=== PATIENT | male | born 1945 | race Caucasian/White ===

== ENCOUNTER 2019-07-04 13:50 | Outpatient (CLI) | payer MEDICARE, OTHER | END 2019-07-04 23:59 | disposition home or self-care (01) | LOC: WOU 13:50 | PROVIDERS: ATTEND Podiatrist Foot & Ankle Surgery | DX: B35.1 Tinea unguium (principal); L60.0 Ingrowing nail; I83.893 Varicose veins of bilateral lower extremities with other complications; Z86.718 Personal history of other venous thrombosis and embolism; Z79.01 Long term (current) use of anticoagulants | CPT/HCPCS: G0463 ==

== ENCOUNTER 2019-09-04 12:50 | Outpatient (CLI) | payer MEDICARE, OTHER | END 2019-09-04 23:59 | disposition home or self-care (01) | LOC: WOU 12:50 | PROVIDERS: ATTEND Podiatrist Foot & Ankle Surgery | DX: I87.312 Chronic venous hypertension (idiopathic) with ulcer of left lower extremity (principal); L97.822 Non-pressure chronic ulcer of other part of left lower leg with fat layer exposed; L60.0 Ingrowing nail; B35.1 Tinea unguium; I87.2 Venous insufficiency (chronic) (peripheral); R60.1 Generalized edema; I86.8 Varicose veins of other specified sites; Z79.01 Long term (current) use of anticoagulants | CPT/HCPCS: G0463 ==

== ENCOUNTER 2019-11-06 12:45 | Outpatient (CLI) | payer MEDICARE, OTHER | END 2019-11-06 23:59 | disposition home or self-care (01) | LOC: WOU 12:45 | PROVIDERS: ATTEND Podiatrist Foot & Ankle Surgery | DX: I87.2 Venous insufficiency (chronic) (peripheral) (principal); B35.1 Tinea unguium; L60.0 Ingrowing nail; R60.1 Generalized edema; I86.8 Varicose veins of other specified sites; Z79.01 Long term (current) use of anticoagulants | CPT/HCPCS: G0463 ==

== ENCOUNTER 2020-01-08 13:00 | Outpatient (CLI) | payer MEDICARE, OTHER | END 2020-01-08 23:59 | disposition home or self-care (01) | LOC: WOU 13:00 | PROVIDERS: ATTEND Podiatrist Foot & Ankle Surgery | DX: I87.2 Venous insufficiency (chronic) (peripheral) (principal); L60.0 Ingrowing nail; B35.1 Tinea unguium; R60.1 Generalized edema; Z79.01 Long term (current) use of anticoagulants; I10 Essential (primary) hypertension | CPT/HCPCS: G0463 ==

== ENCOUNTER 2020-02-08 13:00 | Outpatient (CLI) | payer MEDICARE, OTHER | END 2020-02-08 23:59 | disposition home or self-care (01) | LOC: WOU 13:00 | PROVIDERS: ATTEND Podiatrist Foot & Ankle Surgery | DX: I87.2 Venous insufficiency (chronic) (peripheral) (principal); L60.0 Ingrowing nail; R60.0 Localized edema; Z85.79 Personal history of other malignant neoplasms of lymphoid, hematopoietic and related tissues; Z92.21 Personal history of antineoplastic chemotherapy | CPT/HCPCS: G0463 ==

== ENCOUNTER 2020-02-12 14:50 | Outpatient (CLI) | payer MEDICARE, OTHER | END 2020-02-12 23:59 | disposition home or self-care (01) | LOC: RAD 14:50 | PROVIDERS: ATTEND Podiatrist Foot & Ankle Surgery | DX: M77.32 Calcaneal spur, left foot (principal) | CPT/HCPCS: 73630-TC ==

== ENCOUNTER 2020-02-15 13:00 | Outpatient (CLI) | payer MEDICARE, OTHER | END 2020-02-15 23:59 | disposition home or self-care (01) | LOC: WOU 13:00 | PROVIDERS: ATTEND Podiatrist Foot & Ankle Surgery | DX: L60.0 Ingrowing nail (principal); I87.2 Venous insufficiency (chronic) (peripheral); R60.1 Generalized edema; Z85.72 Personal history of non-Hodgkin lymphomas; Z92.21 Personal history of antineoplastic chemotherapy; Z79.01 Long term (current) use of anticoagulants | CPT/HCPCS: G0463 ==

== ENCOUNTER 2020-02-19 13:45 | Outpatient (CLI) | payer MEDICARE, OTHER ==
[2020-02-19] MEDS ORDERED: PHENOL TP ONE (15:00)
[2020-02-19] MEDS ORDERED: ETHYL CHLORIDE SPRAY 1 EA BOTTLE TP ONE (15:30)
== END 2020-02-19 23:59 | disposition home or self-care (01) ==
LOC: WOU 13:45
PROVIDERS: ATTEND Podiatrist Foot & Ankle Surgery
DX: L60.0 Ingrowing nail (principal); I87.2 Venous insufficiency (chronic) (peripheral); R60.1 Generalized edema; I10 Essential (primary) hypertension; Z85.72 Personal history of non-Hodgkin lymphomas; Z92.21 Personal history of antineoplastic chemotherapy; Z79.01 Long term (current) use of anticoagulants
CPT/HCPCS: 11730; 11750; 87102; J3490

== ENCOUNTER 2020-02-22 13:05 | Outpatient (CLI) | payer MEDICARE, OTHER | END 2020-02-22 23:59 | disposition home or self-care (01) | LOC: WOU 13:05 | PROVIDERS: ATTEND Podiatrist Foot & Ankle Surgery | DX: L60.0 Ingrowing nail (principal); I87.2 Venous insufficiency (chronic) (peripheral); R60.1 Generalized edema; I10 Essential (primary) hypertension; Z92.21 Personal history of antineoplastic chemotherapy; Z85.72 Personal history of non-Hodgkin lymphomas | CPT/HCPCS: G0463 ==

== ENCOUNTER 2020-02-29 14:10 | Outpatient (CLI) | payer MEDICARE, OTHER | END 2020-02-29 23:59 | disposition home or self-care (01) | LOC: WOU 14:10 | PROVIDERS: ATTEND Podiatrist Foot & Ankle Surgery | DX: I87.2 Venous insufficiency (chronic) (peripheral) (principal); L60.0 Ingrowing nail; R60.1 Generalized edema; Z85.72 Personal history of non-Hodgkin lymphomas; Z92.21 Personal history of antineoplastic chemotherapy; Z79.01 Long term (current) use of anticoagulants | CPT/HCPCS: G0463 ==

== ENCOUNTER 2020-03-14 13:00 | Outpatient (CLI) | payer MEDICARE, OTHER | END 2020-03-14 23:59 | disposition home or self-care (01) | LOC: WOU 13:00 | PROVIDERS: ATTEND Podiatrist Foot & Ankle Surgery | DX: T81.89XA Other complications of procedures, not elsewhere classified, initial encounter (principal); I87.312 Chronic venous hypertension (idiopathic) with ulcer of left lower extremity; L97.828 Non-pressure chronic ulcer of other part of left lower leg with other specified severity; L60.0 Ingrowing nail; I87.2 Venous insufficiency (chronic) (peripheral); R60.1 Generalized edema; Z92.21 Personal history of antineoplastic chemotherapy; Z85.72 Personal history of non-Hodgkin lymphomas | CPT/HCPCS: 11042 ==

== ENCOUNTER 2020-03-21 14:05 | Outpatient (CLI) | payer MEDICARE, OTHER | END 2020-03-21 23:59 | disposition home or self-care (01) | LOC: WOU 14:05 | PROVIDERS: ATTEND Podiatrist Foot & Ankle Surgery | DX: I87.312 Chronic venous hypertension (idiopathic) with ulcer of left lower extremity (principal); L97.828 Non-pressure chronic ulcer of other part of left lower leg with other specified severity; T81.89XD Other complications of procedures, not elsewhere classified, subsequent encounter; I87.2 Venous insufficiency (chronic) (peripheral); R60.1 Generalized edema; L60.0 Ingrowing nail; Z85.72 Personal history of non-Hodgkin lymphomas; Z92.21 Personal history of antineoplastic chemotherapy; Z79.01 Long term (current) use of anticoagulants | CPT/HCPCS: 29580-LT ==

== ENCOUNTER 2020-03-28 13:40 | Outpatient (CLI) | payer MEDICARE, OTHER | END 2020-03-28 23:59 | disposition home or self-care (01) | LOC: WOU 13:40 | PROVIDERS: ATTEND Podiatrist Foot & Ankle Surgery | DX: I87.2 Venous insufficiency (chronic) (peripheral) (principal); T81.89XA Other complications of procedures, not elsewhere classified, initial encounter; L60.0 Ingrowing nail; Z85.72 Personal history of non-Hodgkin lymphomas; Z92.21 Personal history of antineoplastic chemotherapy; Z79.01 Long term (current) use of anticoagulants | CPT/HCPCS: 11042; 29580-LT ==

== ENCOUNTER 2020-04-08 13:40 | Outpatient (CLI) | payer MEDICARE, OTHER | END 2020-04-08 23:59 | disposition home or self-care (01) | LOC: WOU 13:40 | PROVIDERS: ATTEND Podiatrist Foot & Ankle Surgery | DX: I87.2 Venous insufficiency (chronic) (peripheral) (principal); L97.528 Non-pressure chronic ulcer of other part of left foot with other specified severity; L97.828 Non-pressure chronic ulcer of other part of left lower leg with other specified severity; L60.0 Ingrowing nail; R60.1 Generalized edema; Z85.72 Personal history of non-Hodgkin lymphomas; Z92.21 Personal history of antineoplastic chemotherapy; I10 Essential (primary) hypertension; Z79.01 Long term (current) use of anticoagulants | CPT/HCPCS: 11730; 87070-TC ==

== ENCOUNTER 2020-04-15 13:05 | Outpatient (CLI) | payer MEDICARE, OTHER | END 2020-04-15 23:59 | disposition home or self-care (01) | LOC: WOU 13:05 | PROVIDERS: ATTEND Podiatrist Foot & Ankle Surgery | DX: I87.2 Venous insufficiency (chronic) (peripheral) (principal); R60.1 Generalized edema; L60.0 Ingrowing nail; Z85.72 Personal history of non-Hodgkin lymphomas; Z92.21 Personal history of antineoplastic chemotherapy; I10 Essential (primary) hypertension; Z79.01 Long term (current) use of anticoagulants | CPT/HCPCS: G0463 ==

== ENCOUNTER 2020-05-13 13:10 | Outpatient (CLI) | payer MEDICARE, OTHER | END 2020-05-13 23:59 | disposition home health service (06) | LOC: WOU 13:10 | PROVIDERS: ATTEND Podiatrist Foot & Ankle Surgery | DX: I87.312 Chronic venous hypertension (idiopathic) with ulcer of left lower extremity (principal); L97.828 Non-pressure chronic ulcer of other part of left lower leg with other specified severity; R60.1 Generalized edema; L60.0 Ingrowing nail; I87.2 Venous insufficiency (chronic) (peripheral); Z85.72 Personal history of non-Hodgkin lymphomas; Z92.21 Personal history of antineoplastic chemotherapy; Z79.01 Long term (current) use of anticoagulants | CPT/HCPCS: 29580-LT ==

== ENCOUNTER 2020-05-23 13:05 | Outpatient (CLI) | payer MEDICARE, OTHER | END 2020-05-23 23:59 | disposition home health service (06) | LOC: WOU 13:05 | PROVIDERS: ATTEND Podiatrist Foot & Ankle Surgery | DX: I87.2 Venous insufficiency (chronic) (peripheral) (principal); L97.822 Non-pressure chronic ulcer of other part of left lower leg with fat layer exposed; L97.512 Non-pressure chronic ulcer of other part of right foot with fat layer exposed; R60.1 Generalized edema; L60.0 Ingrowing nail; Z85.72 Personal history of non-Hodgkin lymphomas; Z92.21 Personal history of antineoplastic chemotherapy; Z79.01 Long term (current) use of anticoagulants | CPT/HCPCS: 11042; 87070; 87077; 87186; A6207 ==

== ENCOUNTER 2020-05-30 12:55 | Outpatient (CLI) | payer MEDICARE, OTHER | END 2020-05-30 23:59 | disposition home health service (06) | LOC: WOU 12:55 | PROVIDERS: ATTEND Podiatrist Foot & Ankle Surgery | DX: I87.312 Chronic venous hypertension (idiopathic) with ulcer of left lower extremity (principal); L97.822 Non-pressure chronic ulcer of other part of left lower leg with fat layer exposed; I87.2 Venous insufficiency (chronic) (peripheral); R60.1 Generalized edema; L60.0 Ingrowing nail; I10 Essential (primary) hypertension; Z92.21 Personal history of antineoplastic chemotherapy; Z85.72 Personal history of non-Hodgkin lymphomas; Z79.01 Long term (current) use of anticoagulants | CPT/HCPCS: 29580; A6207 ==

== ENCOUNTER 2020-06-06 14:10 | Outpatient (CLI) | payer MEDICARE, OTHER ==
[~2020-06-06 14:10] MED LIST: MUPIROCIN 2% CREAM 15 GM TUBE TP ONE
== END 2020-06-06 23:59 | disposition home health service (06) ==
LOC: WOU 14:10
PROVIDERS: ATTEND Podiatrist Foot & Ankle Surgery
DX: I87.312 Chronic venous hypertension (idiopathic) with ulcer of left lower extremity (principal); L97.822 Non-pressure chronic ulcer of other part of left lower leg with fat layer exposed; I87.2 Venous insufficiency (chronic) (peripheral); L60.0 Ingrowing nail; I10 Essential (primary) hypertension; Z79.01 Long term (current) use of anticoagulants; Z85.72 Personal history of non-Hodgkin lymphomas; Z92.21 Personal history of antineoplastic chemotherapy
CPT/HCPCS: 29580; A6207

== ENCOUNTER 2020-06-27 13:35 | Outpatient (CLI) | payer MEDICARE, OTHER | END 2020-06-27 23:59 | disposition home health service (06) | LOC: WOU 13:35 | PROVIDERS: ATTEND Podiatrist Foot & Ankle Surgery | DX: I87.312 Chronic venous hypertension (idiopathic) with ulcer of left lower extremity (principal); L97.822 Non-pressure chronic ulcer of other part of left lower leg with fat layer exposed; R60.1 Generalized edema; I87.2 Venous insufficiency (chronic) (peripheral); Z85.72 Personal history of non-Hodgkin lymphomas; Z92.21 Personal history of antineoplastic chemotherapy; Z79.01 Long term (current) use of anticoagulants | CPT/HCPCS: 11042; A6207 ==

== ENCOUNTER 2020-07-01 13:00 | Outpatient (CLI) | payer MEDICARE, OTHER ==
[2020-07-01] MEDS ORDERED: MUPIROCIN 2% CREAM 15 GM TUBE TP ONE (13:58)
== END 2020-07-01 23:59 | disposition home health service (06) ==
LOC: WOU 13:00
PROVIDERS: ATTEND Podiatrist Foot & Ankle Surgery
DX: I87.312 Chronic venous hypertension (idiopathic) with ulcer of left lower extremity (principal); L97.828 Non-pressure chronic ulcer of other part of left lower leg with other specified severity; I87.2 Venous insufficiency (chronic) (peripheral); R60.1 Generalized edema; Z85.72 Personal history of non-Hodgkin lymphomas; Z92.21 Personal history of antineoplastic chemotherapy; I10 Essential (primary) hypertension; Z79.01 Long term (current) use of anticoagulants
CPT/HCPCS: 99213; A6207; G0463

== ENCOUNTER 2020-07-08 13:15 | Outpatient (CLI) | payer MEDICARE, OTHER | END 2020-07-08 23:59 | disposition home health service (06) | LOC: WOU 13:15 | PROVIDERS: ATTEND Podiatrist Foot & Ankle Surgery | DX: I87.2 Venous insufficiency (chronic) (peripheral) (principal); R60.1 Generalized edema; Z85.72 Personal history of non-Hodgkin lymphomas; Z92.21 Personal history of antineoplastic chemotherapy; Z79.01 Long term (current) use of anticoagulants | CPT/HCPCS: 29580; A6207 ==

== ENCOUNTER 2020-07-15 13:45 | Outpatient (CLI) | payer MEDICARE, OTHER | END 2020-07-15 23:59 | disposition home health service (06) | LOC: WOU 13:45 | PROVIDERS: ATTEND Podiatrist Foot & Ankle Surgery | DX: I87.2 Venous insufficiency (chronic) (peripheral) (principal); R60.1 Generalized edema; Z85.72 Personal history of non-Hodgkin lymphomas; Z92.21 Personal history of antineoplastic chemotherapy; R54 Age-related physical debility | CPT/HCPCS: 29580-LT; A6207; A6452 ==

== ENCOUNTER 2020-08-05 13:45 | Outpatient (CLI) | payer MEDICARE, OTHER | END 2020-08-05 23:59 | disposition home health service (06) | LOC: WOU 13:45 | PROVIDERS: ATTEND Podiatrist Foot & Ankle Surgery | DX: I87.2 Venous insufficiency (chronic) (peripheral) (principal); R60.1 Generalized edema; R54 Age-related physical debility; B35.1 Tinea unguium; I10 Essential (primary) hypertension; Z85.72 Personal history of non-Hodgkin lymphomas; Z92.21 Personal history of antineoplastic chemotherapy; Z79.01 Long term (current) use of anticoagulants | CPT/HCPCS: G0463 ==

== ENCOUNTER 2020-09-09 13:30 | Outpatient (CLI) | payer MEDICARE, OTHER | END 2020-09-09 23:59 | disposition home health service (06) | LOC: WOU 13:30 | PROVIDERS: ATTEND Podiatrist Foot & Ankle Surgery | DX: I87.2 Venous insufficiency (chronic) (peripheral) (principal); R60.1 Generalized edema; R54 Age-related physical debility; Z85.72 Personal history of non-Hodgkin lymphomas; Z92.21 Personal history of antineoplastic chemotherapy; Z79.01 Long term (current) use of anticoagulants | CPT/HCPCS: G0463 ==

== ENCOUNTER 2020-09-16 12:20 | Outpatient (CLI) | payer MEDICARE, OTHER | END 2020-09-16 23:59 | disposition home health service (06) | LOC: WOU 12:20 | PROVIDERS: ATTEND Podiatrist Foot & Ankle Surgery | DX: I87.2 Venous insufficiency (chronic) (peripheral) (principal); R60.0 Localized edema; R54 Age-related physical debility; I10 Essential (primary) hypertension; Z79.01 Long term (current) use of anticoagulants; Z92.21 Personal history of antineoplastic chemotherapy; Z85.72 Personal history of non-Hodgkin lymphomas | CPT/HCPCS: G0463 ==

== ENCOUNTER 2020-09-16 15:34 | Emergency (ER) | payer MEDICARE, OTHER ==
[~2020-09-16] VITALS: Ht 152.4 cm; Wt 108.9 kg
--- NOTE | 2020-09-16 15:55 | NUR ---
PATIENT SENT BY DR. SHARMA FOR LLE SWELLING AND REDNESS. NO SIGNS OF ACUTE DISTRESS NOTED AT THIS TIME. SATING WELL ON RA. WILL CARRY OUT MD ORDERS.
--- NOTE | 2020-09-16 16:18 | NUR ---
us at bedside
[2020-09-16 17:26] VITALS: BP 156/85
--- NOTE | 2020-09-16 17:27 | NUR ---
Patient discharged to home in stable condition. Written and verbal after care instructions given. Patient verbalizes understanding of instruction.
== END 2020-09-16 17:29 | disposition home or self-care (01) ==
LOC: ER 15:34
DX: R60.0 Localized edema (principal); I11.0 Hypertensive heart disease with heart failure; I50.9 Heart failure, unspecified; Z98.890 Other specified postprocedural states; Z88.1 Allergy status to other antibiotic agents; Z88.8 Allergy status to other drugs, medicaments and biological substances
CPT/HCPCS: 93971-TC

== ENCOUNTER 2020-09-19 14:10 | Outpatient (CLI) | payer MEDICARE, OTHER | END 2020-09-19 23:59 | disposition home health service (06) | LOC: WOU 14:10 | PROVIDERS: ATTEND Podiatrist Foot & Ankle Surgery | DX: I87.2 Venous insufficiency (chronic) (peripheral) (principal); L03.116 Cellulitis of left lower limb; R60.1 Generalized edema; Z85.72 Personal history of non-Hodgkin lymphomas; Z92.21 Personal history of antineoplastic chemotherapy; R54 Age-related physical debility; Z79.01 Long term (current) use of anticoagulants | CPT/HCPCS: G0463 ==

== ENCOUNTER 2020-09-23 13:45 | Outpatient (CLI) | payer MEDICARE, OTHER | END 2020-09-23 23:59 | disposition home health service (06) | LOC: WOU 13:45 | PROVIDERS: ATTEND Podiatrist Foot & Ankle Surgery | DX: I87.2 Venous insufficiency (chronic) (peripheral) (principal); R60.1 Generalized edema; R54 Age-related physical debility; Z92.21 Personal history of antineoplastic chemotherapy; Z85.72 Personal history of non-Hodgkin lymphomas; Z79.01 Long term (current) use of anticoagulants | CPT/HCPCS: G0463 ==

== ENCOUNTER 2020-09-30 14:00 | Outpatient (CLI) | payer MEDICARE, OTHER ==
[2020-09-30] MEDS ORDERED: UREA 10% -AHA 4% CREAM 57 GM TUBE ONE (14:45)
== END 2020-09-30 23:59 | disposition home health service (06) ==
LOC: WOU 14:00
PROVIDERS: ATTEND Podiatrist Foot & Ankle Surgery
DX: I87.2 Venous insufficiency (chronic) (peripheral) (principal); I89.0 Lymphedema, not elsewhere classified; R60.0 Localized edema; R54 Age-related physical debility; Z85.72 Personal history of non-Hodgkin lymphomas; Z92.21 Personal history of antineoplastic chemotherapy; Z79.01 Long term (current) use of anticoagulants
CPT/HCPCS: A6452; G0463

== ENCOUNTER 2020-10-07 13:55 | Outpatient (CLI) | payer MEDICARE, OTHER | END 2020-10-07 23:59 | disposition home health service (06) | LOC: WOU 13:55 | PROVIDERS: ATTEND Podiatrist Foot & Ankle Surgery | DX: I89.0 Lymphedema, not elsewhere classified (principal); I87.2 Venous insufficiency (chronic) (peripheral); Z92.21 Personal history of antineoplastic chemotherapy; R54 Age-related physical debility; Z85.72 Personal history of non-Hodgkin lymphomas | CPT/HCPCS: A6452; G0463 ==

== ENCOUNTER 2020-10-14 13:00 | Outpatient (CLI) | payer MEDICARE, OTHER | END 2020-10-14 23:59 | disposition home health service (06) | LOC: WOU 13:00 | PROVIDERS: ATTEND Podiatrist Foot & Ankle Surgery | DX: I87.312 Chronic venous hypertension (idiopathic) with ulcer of left lower extremity (principal); L97.822 Non-pressure chronic ulcer of other part of left lower leg with fat layer exposed; I87.2 Venous insufficiency (chronic) (peripheral); I89.0 Lymphedema, not elsewhere classified; R54 Age-related physical debility; Z79.01 Long term (current) use of anticoagulants | CPT/HCPCS: 11042; A6207; A6452 ==

== ENCOUNTER 2020-10-21 11:45 | Outpatient (CLI) | payer MEDICARE, OTHER ==
[2020-10-21] MEDS ORDERED: UREA 10% -AHA 4% CREAM 57 GM TUBE ONE (12:32)
== END 2020-10-21 23:59 | disposition home health service (06) ==
LOC: WOU 11:45
PROVIDERS: ATTEND Podiatrist Foot & Ankle Surgery
DX: I87.312 Chronic venous hypertension (idiopathic) with ulcer of left lower extremity (principal); L97.828 Non-pressure chronic ulcer of other part of left lower leg with other specified severity; I89.0 Lymphedema, not elsewhere classified; I87.2 Venous insufficiency (chronic) (peripheral); R60.1 Generalized edema; Z85.72 Personal history of non-Hodgkin lymphomas; Z92.21 Personal history of antineoplastic chemotherapy; L84 Corns and callosities; Z79.01 Long term (current) use of anticoagulants
CPT/HCPCS: 11042; A6207

== ENCOUNTER 2020-10-28 14:35 | Outpatient (CLI) | payer MEDICARE, OTHER | END 2020-10-28 23:59 | disposition home health service (06) | LOC: WOU 14:35 | PROVIDERS: ATTEND Podiatrist Foot & Ankle Surgery | DX: I87.312 Chronic venous hypertension (idiopathic) with ulcer of left lower extremity (principal); L97.828 Non-pressure chronic ulcer of other part of left lower leg with other specified severity; I87.2 Venous insufficiency (chronic) (peripheral); I89.0 Lymphedema, not elsewhere classified; R54 Age-related physical debility; Z85.72 Personal history of non-Hodgkin lymphomas; Z92.21 Personal history of antineoplastic chemotherapy; Z79.01 Long term (current) use of anticoagulants | CPT/HCPCS: 11042; A6197; A6207 ==

== ENCOUNTER 2020-11-04 14:10 | Outpatient (CLI) | payer MEDICARE, OTHER | END 2020-11-04 23:59 | disposition home health service (06) | LOC: WOU 14:10 | PROVIDERS: ATTEND Podiatrist Foot & Ankle Surgery | DX: I87.312 Chronic venous hypertension (idiopathic) with ulcer of left lower extremity (principal); L97.828 Non-pressure chronic ulcer of other part of left lower leg with other specified severity; I87.2 Venous insufficiency (chronic) (peripheral); R60.1 Generalized edema; I89.0 Lymphedema, not elsewhere classified; R54 Age-related physical debility; Z92.21 Personal history of antineoplastic chemotherapy; Z85.72 Personal history of non-Hodgkin lymphomas; Z79.01 Long term (current) use of anticoagulants | CPT/HCPCS: 11042; 11045; A6207 ×2 ==

== ENCOUNTER 2020-11-11 14:00 | Outpatient (CLI) | payer MEDICARE, OTHER | END 2020-11-11 23:59 | disposition home health service (06) | LOC: WOU 14:00 | PROVIDERS: ATTEND Podiatrist Foot & Ankle Surgery | DX: I87.312 Chronic venous hypertension (idiopathic) with ulcer of left lower extremity (principal); L97.828 Non-pressure chronic ulcer of other part of left lower leg with other specified severity; I87.2 Venous insufficiency (chronic) (peripheral); I89.0 Lymphedema, not elsewhere classified; R60.1 Generalized edema; R54 Age-related physical debility; Z92.21 Personal history of antineoplastic chemotherapy; Z85.72 Personal history of non-Hodgkin lymphomas | CPT/HCPCS: 29581; 87070; 87075; 87077; 87186 ×2; A6197; A6207 ×2; 29580 ==

== ENCOUNTER 2020-11-14 13:45 | Outpatient (CLI) | payer MEDICARE, OTHER | END 2020-11-14 23:59 | disposition home health service (06) | LOC: WOU 13:45 | PROVIDERS: ATTEND Podiatrist Foot & Ankle Surgery | DX: I87.312 Chronic venous hypertension (idiopathic) with ulcer of left lower extremity (principal); L97.822 Non-pressure chronic ulcer of other part of left lower leg with fat layer exposed; I89.0 Lymphedema, not elsewhere classified; I87.2 Venous insufficiency (chronic) (peripheral); R60.1 Generalized edema; R54 Age-related physical debility; Z92.21 Personal history of antineoplastic chemotherapy; Z85.72 Personal history of non-Hodgkin lymphomas; I10 Essential (primary) hypertension; Z79.01 Long term (current) use of anticoagulants | CPT/HCPCS: 29581; A6207; 29580 ==

== ENCOUNTER 2020-11-25 13:35 | Outpatient (CLI) | payer MEDICARE, OTHER ==
[2020-11-25] MEDS ORDERED: GENTAMICIN 0.1% CREAM 15 GM TUBE ONE (14:56)
[2020-11-25] MEDS ORDERED: UREA 10% -AHA 4% CREAM 57 GM TUBE ONE (14:57)
== END 2020-11-25 23:59 | disposition home health service (06) ==
LOC: WOU 13:35
PROVIDERS: ATTEND Podiatrist Foot & Ankle Surgery
DX: I87.312 Chronic venous hypertension (idiopathic) with ulcer of left lower extremity (principal); L97.822 Non-pressure chronic ulcer of other part of left lower leg with fat layer exposed; I89.0 Lymphedema, not elsewhere classified; I87.2 Venous insufficiency (chronic) (peripheral); R54 Age-related physical debility; Z92.21 Personal history of antineoplastic chemotherapy; Z85.72 Personal history of non-Hodgkin lymphomas; Z79.01 Long term (current) use of anticoagulants
CPT/HCPCS: 11042; 29581; A6207

== ENCOUNTER 2020-12-02 13:40 | Outpatient (CLI) | payer MEDICARE, OTHER ==
[2020-12-02] MEDS ORDERED: GENTAMICIN 0.1% CREAM 15 GM TUBE ONE (14:20)
== END 2020-12-02 23:59 | disposition home health service (06) ==
LOC: WOU 13:40
PROVIDERS: ATTEND Podiatrist Foot & Ankle Surgery
DX: I87.312 Chronic venous hypertension (idiopathic) with ulcer of left lower extremity (principal); L97.822 Non-pressure chronic ulcer of other part of left lower leg with fat layer exposed; I87.2 Venous insufficiency (chronic) (peripheral); I89.0 Lymphedema, not elsewhere classified; R54 Age-related physical debility; Z92.21 Personal history of antineoplastic chemotherapy; Z85.72 Personal history of non-Hodgkin lymphomas; R60.1 Generalized edema; Z79.01 Long term (current) use of anticoagulants
CPT/HCPCS: 29581; 87070; 87186; A6207; 29580

== ENCOUNTER 2020-12-09 13:40 | Outpatient (CLI) | payer MEDICARE, OTHER ==
[2020-12-09] MEDS ORDERED: LIDOCAINE 2% JEL 5 ML TUBE ONE (14:28)
[2020-12-09] MEDS ORDERED: MUPIROCIN 2% CREAM 15 GM TUBE TP ONE (15:09)
[2020-12-09] MEDS ORDERED: GENTAMICIN 0.1% CREAM 15 GM TUBE ONE (15:10)
== END 2020-12-09 23:59 | disposition home health service (06) ==
LOC: WOU 13:40
PROVIDERS: ATTEND Podiatrist Foot & Ankle Surgery
DX: I87.312 Chronic venous hypertension (idiopathic) with ulcer of left lower extremity (principal); L97.822 Non-pressure chronic ulcer of other part of left lower leg with fat layer exposed; I89.0 Lymphedema, not elsewhere classified; I87.2 Venous insufficiency (chronic) (peripheral); S90.111A Contusion of right great toe without damage to nail, initial encounter; X58.XXXA Exposure to other specified factors, initial encounter; Y92.89 Other specified places as the place of occurrence of the external cause; R54 Age-related physical debility; Z85.72 Personal history of non-Hodgkin lymphomas; Z92.21 Personal history of antineoplastic chemotherapy; Z79.01 Long term (current) use of anticoagulants
CPT/HCPCS: 11042; 29581; 87070; 87075; A6207; 88304-TC; 88311-TC; 88312-TC

== ENCOUNTER 2020-12-19 13:40 | Outpatient (CLI) | payer MEDICARE, OTHER ==
[2020-12-19] MEDS ORDERED: HYDROCORTISONE 1% CREAM 28.35 GM TUBE TP ONE (14:26)
[2020-12-19] MEDS ORDERED: GENTAMICIN 0.1% CREAM 15 GM TUBE ONE (14:30)
== END 2020-12-19 23:59 | disposition home or self-care (01) ==
LOC: WOU 13:40
PROVIDERS: ATTEND Podiatrist Foot & Ankle Surgery
DX: I87.312 Chronic venous hypertension (idiopathic) with ulcer of left lower extremity (principal); L97.822 Non-pressure chronic ulcer of other part of left lower leg with fat layer exposed; I87.2 Venous insufficiency (chronic) (peripheral); R60.1 Generalized edema; I89.0 Lymphedema, not elsewhere classified; R54 Age-related physical debility; Z92.21 Personal history of antineoplastic chemotherapy; Z85.72 Personal history of non-Hodgkin lymphomas; I10 Essential (primary) hypertension; Z79.01 Long term (current) use of anticoagulants
CPT/HCPCS: 11042; 29580; A6253; A6207

== ENCOUNTER 2020-12-30 13:40 | Outpatient (CLI) | payer MEDICARE, OTHER ==
[2020-12-30] MEDS ORDERED: GENTAMICIN 0.1% CREAM 15 GM TUBE ONE (14:05)
[2020-12-30] MEDS ORDERED: HYDROCORTISONE 1% CREAM 28.35 GM TUBE TP ONE (14:08)
[2020-12-30] MEDS ORDERED: TRIAMCINOLONE ACETONIDE 0.1% CR 15 GM TUBE TP ONE (14:19)
[2020-12-30] MEDS ORDERED: CLOTRIMAZOLE 1% 15 GM TUBE TP ONE (14:20)
== END 2020-12-30 23:59 | disposition home health service (06) ==
LOC: WOU 13:40
PROVIDERS: ATTEND Podiatrist Foot & Ankle Surgery
DX: I87.312 Chronic venous hypertension (idiopathic) with ulcer of left lower extremity (principal); L97.822 Non-pressure chronic ulcer of other part of left lower leg with fat layer exposed; L08.9 Local infection of the skin and subcutaneous tissue, unspecified; I89.0 Lymphedema, not elsewhere classified; I87.2 Venous insufficiency (chronic) (peripheral); R60.1 Generalized edema; R54 Age-related physical debility; Z92.21 Personal history of antineoplastic chemotherapy; Z79.01 Long term (current) use of anticoagulants
CPT/HCPCS: 29580; A6207

== ENCOUNTER 2021-01-06 13:55 | Outpatient (CLI) | payer MEDICARE, OTHER ==
[2021-01-06] MEDS ORDERED: GENTAMICIN 0.1% CREAM 15 GM TUBE ONE (15:24)
[2021-01-06] MEDS ORDERED: TRIAMCINOLONE ACETONIDE 0.1% CR 15 GM TUBE TP ONE (15:46)
== END 2021-01-06 23:59 | disposition home health service (06) ==
LOC: WOU 13:55
PROVIDERS: ATTEND Podiatrist Foot & Ankle Surgery
DX: I87.312 Chronic venous hypertension (idiopathic) with ulcer of left lower extremity (principal); L97.828 Non-pressure chronic ulcer of other part of left lower leg with other specified severity; I89.0 Lymphedema, not elsewhere classified; I87.2 Venous insufficiency (chronic) (peripheral); I10 Essential (primary) hypertension; Z85.72 Personal history of non-Hodgkin lymphomas; Z92.21 Personal history of antineoplastic chemotherapy; R54 Age-related physical debility; Z79.01 Long term (current) use of anticoagulants
CPT/HCPCS: 29580-50

== ENCOUNTER 2021-01-20 14:00 | Outpatient (CLI) | payer MEDICARE, OTHER ==
[2021-01-20] MEDS ORDERED: TRIAMCINOLONE ACETONIDE 0.1% CR 15 GM TUBE TP ONE (15:51)
== END 2021-01-20 23:59 | disposition home health service (06) ==
LOC: WOU 14:00
PROVIDERS: ATTEND Podiatrist Foot & Ankle Surgery
DX: I89.0 Lymphedema, not elsewhere classified (principal); I87.2 Venous insufficiency (chronic) (peripheral); R60.1 Generalized edema; R54 Age-related physical debility; Z92.21 Personal history of antineoplastic chemotherapy; Z85.72 Personal history of non-Hodgkin lymphomas; Z79.01 Long term (current) use of anticoagulants
CPT/HCPCS: 29580; A6197

== ENCOUNTER 2021-02-10 14:30 | Outpatient (CLI) | payer MEDICARE, OTHER ==
[2021-02-10] MEDS ORDERED: HYDROCORTISONE 1% CREAM 28.35 GM TUBE TP ONE (15:10)
== END 2021-02-10 23:59 | disposition home health service (06) ==
LOC: WOU 14:30
PROVIDERS: ATTEND Podiatrist Foot & Ankle Surgery
DX: I87.2 Venous insufficiency (chronic) (peripheral) (principal); I89.0 Lymphedema, not elsewhere classified; L60.0 Ingrowing nail; R54 Age-related physical debility; Z85.72 Personal history of non-Hodgkin lymphomas; Z92.21 Personal history of antineoplastic chemotherapy; Z79.01 Long term (current) use of anticoagulants; I10 Essential (primary) hypertension
CPT/HCPCS: 11730; 29580-50

== ENCOUNTER 2021-02-17 14:00 | Outpatient (CLI) | payer MEDICARE, OTHER ==
[2021-02-17] MEDS ORDERED: HYDROCORTISONE 1% CREAM 28.35 GM TUBE TP ONE (15:11)
== END 2021-02-17 23:59 | disposition home health service (06) ==
LOC: WOU 14:00
PROVIDERS: ATTEND Podiatrist Foot & Ankle Surgery
DX: I87.2 Venous insufficiency (chronic) (peripheral) (principal); I89.0 Lymphedema, not elsewhere classified; R54 Age-related physical debility; L60.0 Ingrowing nail; Z85.72 Personal history of non-Hodgkin lymphomas; Z92.21 Personal history of antineoplastic chemotherapy; Z79.01 Long term (current) use of anticoagulants
CPT/HCPCS: 29580-LT

== ENCOUNTER 2021-03-10 13:50 | Outpatient (CLI) | payer MEDICARE, OTHER | END 2021-03-10 23:59 | disposition home health service (06) | LOC: WOU 13:50 | PROVIDERS: ATTEND Podiatrist Foot & Ankle Surgery | DX: I87.2 Venous insufficiency (chronic) (peripheral) (principal); I89.0 Lymphedema, not elsewhere classified; L60.0 Ingrowing nail; R54 Age-related physical debility; Z79.01 Long term (current) use of anticoagulants; Z85.72 Personal history of non-Hodgkin lymphomas; Z92.21 Personal history of antineoplastic chemotherapy | CPT/HCPCS: 29580-50 ==

== ENCOUNTER 2021-04-07 14:10 | Outpatient (CLI) | payer MEDICARE, OTHER | END 2021-04-07 23:59 | disposition home health service (06) | LOC: WOU 14:10 | PROVIDERS: ATTEND Podiatrist Foot & Ankle Surgery | DX: I87.2 Venous insufficiency (chronic) (peripheral) (principal); I89.0 Lymphedema, not elsewhere classified; R60.1 Generalized edema; R54 Age-related physical debility; L60.0 Ingrowing nail; Z92.21 Personal history of antineoplastic chemotherapy; Z85.72 Personal history of non-Hodgkin lymphomas; I10 Essential (primary) hypertension; Z79.01 Long term (current) use of anticoagulants | CPT/HCPCS: 29580-50 ==

== ENCOUNTER → 2021-05-08 | Outpatient (CLI) | payer MEDICARE, OTHER | END | disposition home health service (06) | LOC: WOU 13:40 | PROVIDERS: ATTEND Podiatrist Foot & Ankle Surgery | DX: I87.2 Venous insufficiency (chronic) (peripheral) (principal); I89.0 Lymphedema, not elsewhere classified; R60.1 Generalized edema; B35.1 Tinea unguium; R54 Age-related physical debility; L60.0 Ingrowing nail; I10 Essential (primary) hypertension; Z92.21 Personal history of antineoplastic chemotherapy; Z85.72 Personal history of non-Hodgkin lymphomas; Z79.01 Long term (current) use of anticoagulants | CPT/HCPCS: 29580-50 ==

== ENCOUNTER 2021-05-26 13:00 | Outpatient (CLI) | payer MEDICARE, OTHER ==
[2021-05-26] MEDS ORDERED: GENTAMICIN 0.1% CREAM 15 GM TUBE ONE (14:08)
== END 2021-05-26 23:59 | disposition home health service (06) ==
LOC: WOU 13:00
PROVIDERS: ATTEND Podiatrist Foot & Ankle Surgery
DX: I87.312 Chronic venous hypertension (idiopathic) with ulcer of left lower extremity (principal); L97.822 Non-pressure chronic ulcer of other part of left lower leg with fat layer exposed; I87.2 Venous insufficiency (chronic) (peripheral); I89.0 Lymphedema, not elsewhere classified; R60.1 Generalized edema; R54 Age-related physical debility; L60.0 Ingrowing nail; Z92.21 Personal history of antineoplastic chemotherapy; Z79.01 Long term (current) use of anticoagulants
CPT/HCPCS: 11042

== ENCOUNTER 2021-06-02 13:55 | Outpatient (CLI) | payer MEDICARE, OTHER ==
[2021-06-02] MEDS ORDERED: GENTAMICIN 0.1% CREAM 15 GM TUBE ONE (14:40)
== END 2021-06-02 23:59 | disposition home health service (06) ==
LOC: WOU 13:55
PROVIDERS: ATTEND Podiatrist Foot & Ankle Surgery
DX: I87.312 Chronic venous hypertension (idiopathic) with ulcer of left lower extremity (principal); L97.822 Non-pressure chronic ulcer of other part of left lower leg with fat layer exposed; I89.0 Lymphedema, not elsewhere classified; I87.2 Venous insufficiency (chronic) (peripheral); L60.0 Ingrowing nail; R60.1 Generalized edema; R54 Age-related physical debility; Z85.72 Personal history of non-Hodgkin lymphomas; Z92.21 Personal history of antineoplastic chemotherapy; Z79.01 Long term (current) use of anticoagulants
CPT/HCPCS: G0463

== ENCOUNTER 2021-06-16 14:00 | Outpatient (CLI) | payer MEDICARE, OTHER ==
[2021-06-16] MEDS ORDERED: GENTAMICIN 0.1% CREAM 15 GM TUBE ONE (14:34)
== END 2021-06-16 23:59 | disposition home health service (06) ==
LOC: WOU 14:00
PROVIDERS: ATTEND Podiatrist Foot & Ankle Surgery
DX: I87.312 Chronic venous hypertension (idiopathic) with ulcer of left lower extremity (principal); L97.829 Non-pressure chronic ulcer of other part of left lower leg with unspecified severity; I87.2 Venous insufficiency (chronic) (peripheral); R60.1 Generalized edema; R54 Age-related physical debility; Z92.21 Personal history of antineoplastic chemotherapy; I89.0 Lymphedema, not elsewhere classified; L60.0 Ingrowing nail; Z85.72 Personal history of non-Hodgkin lymphomas; Z83.3 Family history of diabetes mellitus; Z82.3 Family history of stroke; Z82.49 Family history of ischemic heart disease and other diseases of the circulatory system; Z86.718 Personal history of other venous thrombosis and embolism; Z79.01 Long term (current) use of anticoagulants; Z79.899 Other long term (current) drug therapy
CPT/HCPCS: 29580-50

== ENCOUNTER 2021-06-27 10:59 | Emergency (ER) | payer MEDICARE, OTHER ==
[~2021-06-27] VITALS: Ht 165.1 cm; Wt 115.7 kg
--- NOTE | 2021-06-27 11:05 | NUR ---
FRENCH SUAREZ "From Home was straining to poop earlier today and felt disoriented- was NOT able to complete pooping" Patient a/ox4, good historian, verbally responsive, denies any dizziness or light headedness at this time.
--- NOTE | 2021-06-27 11:28 | NUR ---
IV LINE ESTABLISHED. PROVIDED WITH A URINAL.
[2021-06-27] MEDS ORDERED: IV NS 0.9% 500 ML BAG IV ONE (11:30)
[2021-06-27] MEDS ORDERED: DILT180T PO (11:40)
[2021-06-27] MEDS ORDERED: WARF-58 PO (11:40)
[2021-06-27] MEDS ORDERED: ALLO300T2 PO (11:40)
[2021-06-27] MEDS ORDERED: FURO40TA5 PO (11:40)
[2021-06-27 12:22] LABS: BASOPHILS # (AUTO) 0.1 K/uL (0.0-0.2); BASOPHILS % (AUTO) 0.9 % (0.0-2.0); EOSINOPHILS % (AUTO) 3.7 % (0.0-6.0); HEMATOCRIT 45 % (39-51); HEMOGLOBIN 14.9 g/dL (13.5-17.5); LYMPHOCYTES # (AUTO) 0.6 K/uL (0.8-4.8); LYMPHOCYTES % (AUTO) 8.8 % (20.0-44.0); MEAN CORPUSCULAR HGB CONC 33 g/dl (31.0-36.0); MEAN CORPUSCULAR VOLUME 90 fL (80-96); MONOCYTES # (AUTO) 0.7 K/uL (0.1-1.30); MONOCYTES % (AUTO) 9.7 % (2.0-12.0); NEUTROPHILS # (AUTO) 5.4 K/uL (1.8-8.9); NEUTROPHILS % (AUTO) 76.9 % (43.0-81.0); PLATELET COUNT (AUTO) 141 K/uL (150-450); RED BLOOD CELL COUNT(AUTO) 4.96 MIL/uL (4.5-6.0)
[2021-06-27 12:29] LABS: ALBUMIN 3.6 g/dL (3.4-5.0); BILIRUBIN,DIRECT 0.1 mg/dL (0.0-0.2); BILIRUBIN,TOTAL 0.4 mg/dL (0.2-1.0); CALCIUM, SERUM 8.6 mg/dL (8.5-10.1); CREATININE 1.2 mg/dL (0.6-1.3); POTASSIUM 3.5 mmol/L (3.5-5.1); TOTAL PROTEIN, SERUM 6.4 g/dL (6.4-8.2)
[2021-06-27] MEDS ORDERED: ASPIRIN 81 MG TAB.CHEW ONE (13:07)
--- NOTE | 2021-06-27 13:10 | NUR ---
PATIENT A/OX4, BREATHING EVEN AND UNLABORED, NO SOB NOTED, NEEDS ATTENDED. AMBULATORY WITH STEADY GAIT. DENIES ANY PAIN. NO DISTRESS NOTED. IV removed. Catheter intact and site benign. Pressure and 4x4 applied to site. No bleeding noted.Patient discharged to home in stable condition. Written and verbal after care instructions given. Patient verbalizes understanding of instruction.
[2021-06-27 13:11] VITALS: BP 162/78
== END 2021-06-27 13:36 | disposition home or self-care (01) ==
LOC: ER 11:00
DX: R55 Syncope and collapse (principal); I11.0 Hypertensive heart disease with heart failure; I50.9 Heart failure, unspecified; I48.91 Unspecified atrial fibrillation; Z86.718 Personal history of other venous thrombosis and embolism; Z88.1 Allergy status to other antibiotic agents; Z88.8 Allergy status to other drugs, medicaments and biological substances; Z60.2 Problems related to living alone; Z79.899 Other long term (current) drug therapy; Z79.01 Long term (current) use of anticoagulants
CPT/HCPCS: 36415; 70450; 71045; 80048; 80076; 82962; 85025; 93005; 99285; J7040

== ENCOUNTER 2021-07-05 20:33 | Inpatient (IN) | payer MEDICARE, OTHER ==
[~2021-07-05] VITALS: Ht 165.1 cm; Wt 109.5 kg
[~2021-07-05 20:33] MED LIST changes: +ALLO300T2 PO; +DILT180T PO; +FURO40TA5 PO; -MUPIROCIN 2% CREAM 15 GM TUBE TP ONE; +WARF-58 PO
--- NOTE | 2021-07-05 20:46 | NUR ---
AT BED SIDE
--- NOTE | 2021-07-05 21:09 | NUR ---
URINE SPECIMEN COLLECTED AND SENT TO LAB.
--- NOTE | 2021-07-05 21:22 | NUR ---
PT TO CT VIA [facility].
[2021-07-05 21:30] LABS: BASOPHILS # (AUTO) 0.1 K/uL (0.0-0.2); EOSINOPHILS % (AUTO) 4.5 % (0.0-6.0); HEMATOCRIT 45 % (39-51); HEMOGLOBIN 15.1 g/dL (13.5-17.5); LYMPHOCYTES # (AUTO) 0.6 K/uL (0.8-4.8); LYMPHOCYTES % (AUTO) 8.3 % (20.0-44.0); MEAN CORPUSCULAR HGB CONC 33 g/dl (31.0-36.0); MEAN CORPUSCULAR VOLUME 90 fL (80-96); MONOCYTES # (AUTO) 0.7 K/uL (0.1-1.30); MONOCYTES % (AUTO) 9.1 % (2.0-12.0); NEUTROPHILS # (AUTO) 5.6 K/uL (1.8-8.9); NEUTROPHILS % (AUTO) 77.1 % (43.0-81.0); PLATELET COUNT (AUTO) 146 K/uL (150-450); RED BLOOD CELL COUNT(AUTO) 5.03 MIL/uL (4.5-6.0); WHITE BLOOD COUNT (AUTO) 7.3 K/uL (4.3-11.0)
[2021-07-05 21:37] LABS: CALCIUM, SERUM 8.9 mg/dL (8.5-10.1); CARBON DIOXIDE 28 mmol/L (21-32); CHLORIDE 104 mmol/L (98-107); CREATININE 1.3 mg/dL (0.6-1.3); GLUCOSE 122 mg/dL (74-106); POTASSIUM 3.7 mmol/L (3.5-5.1); SODIUM SERUM 140 mmol/L (136-145); UREA NITROGEN, BLOOD 14 mg/dL (7-18)
[2021-07-05 21:43] LABS: ALANINE AMINOTRANSFERASE 62 U/L (12-78); ALBUMIN 3.7 g/dL (3.4-5.0); ALKALINE PHOSPHATASE 104 U/L (46-116); ASPARTATE AMINOTRANSFERASE 37 U/L (15-37); BILIRUBIN,DIRECT 0.2 mg/dL (0.0-0.2); BILIRUBIN,TOTAL 0.6 mg/dL (0.2-1.0); TOTAL PROTEIN, SERUM 6.8 g/dL (6.4-8.2)
--- NOTE | 2021-07-05 22:05 | NUR ---
PANEL PAGED PER DR GOLDMAN.
[2021-07-05] MEDS ORDERED: ASPIRIN 81 MG TAB.CHEW PO ONE (22:30)
--- NOTE | 2021-07-05 22:43 | NUR ---
PER RN IMMIGRATION MANAGER PT IS GOING TO 321-2
[2021-07-05] MEDS ORDERED: ASPIRIN EC 81 MG TABLET.DR PO ONE (23:00)
[2021-07-05] MEDS ORDERED: ACETAMINOPHEN 325 MG TABLET PO PRN (23:00)
[2021-07-05] MEDS ORDERED: ONDANSETRON HCL/PF 4 MG/2 ML VIAL IVP PRN (23:00)
[2021-07-05] MEDS ORDERED: Z GUARD REMEDY 2 OZ OINT TP PRN (23:00)
--- NOTE | 2021-07-05 23:03 | NUR ---
report given to travis jin for catalino
--- NOTE | 2021-07-05 23:09 | NUR ---
PT TO 3W VIA [facility]
--- NOTE | 2021-07-05 23:10 | NUR ---
DISTRICT MANAGER IN TRAINING ADMITTING NOTE RECEIVED REPORT FROM JONEL LAWRENCE RN. PT A/OX4; ABLE TO MAKE NEEDS KNOWN. TOLERATING ROOM AIR WELL WITH NO SOB. EXTERNAL CARDIAC TELE MONITOR READS SR BBB HR AT 62. DENIES PAIN OR DISCOMFORT AT THIS TIME. BLE +2 WEEPING EDEMA NOTED. LAC #20G S/L PATENT AND INTACT. PATIENT DENIES WEAKNESS, SLURRED SPEECH, DIFFICULTY SWALLOWING, FACIAL DROOP. RCW PORTACATH FOR CHEMO NOTED. ALL PATIENT BELONGINGS TO PATIENTS BED SIDE. ORIENTED PATIENT TO STAFF, UNIT, AND ROOM. SAFETY MEASURES IN PLACE: BED IN LOWEST LOCKED POSITION, SIDE RAILS UPX2, CALL LIGHT WITHIN EASY REACH. WILL CONT PLAN OF CARE.
--- NOTE | 2021-07-05 23:34 | NUR ---
BOTTLE BOOTH ATTENDANT NOTE ULTRA SOUND TECH AT BEDSIDE
[2021-07-05] MEDS: ENOXAPARIN SODIUM 40 MG/0.4 ML DISP.SYRIN SQ SCH (23:42)
--- NOTE | 2021-07-06 00:10 | NUR ---
GLASS VIAL FILLER NOTE PT TOOK HOME MED CARDIZEM 180MG. BP 158/95 P 70. DENIES CP. NOTIFIED RAFFI STATUARY PAINTER TO DO MED RECON. PT SIGNED HOME MED LIST. WILL GIVE PHARM HOME MEDS.
--- NOTE | 2021-07-06 03:00 | NUR ---
SURVEY RESEARCH ASSOCIATE NOTE - URINE COLLECTED URINE AND PUT SAMPLE IN FRIDGE. ATTEMPTED TO CALL LAB WITH NO RESPONSE WILL TRY AGAIN LATER
[2021-07-06 04:00] VITALS: BP 164/95
[2021-07-06 06:11] LABS: BASOPHILS # (AUTO) 0.1 K/uL (0.0-0.2); BASOPHILS % (AUTO) 0.8 % (0.0-2.0); HEMATOCRIT 47 % (39-51); HEMOGLOBIN 15.9 g/dL (13.5-17.5); LYMPHOCYTES # (AUTO) 0.7 K/uL (0.8-4.8); LYMPHOCYTES % (AUTO) 9.9 % (20.0-44.0); MEAN CORPUSCULAR HGB CONC 34 g/dl (31.0-36.0); MEAN CORPUSCULAR VOLUME 91 fL (80-96); MONOCYTES # (AUTO) 0.6 K/uL (0.1-1.30); MONOCYTES % (AUTO) 7.4 % (2.0-12.0); NEUTROPHILS # (AUTO) 5.8 K/uL (1.8-8.9); NEUTROPHILS % (AUTO) 77.9 % (43.0-81.0); PLATELET COUNT (AUTO) 149 K/uL (150-450); RED BLOOD CELL COUNT(AUTO) 5.22 MIL/uL (4.5-6.0); WHITE BLOOD COUNT (AUTO) 7.4 K/uL (4.3-11.0)
--- NOTE | 2021-07-06 06:23 | NUR ---
FOREMAN/PILE DRIVING AND ERECTION CLOSING NOTE PT A/OX4; IN THE RESTROOM AT THIS TIME; ABLE TO MAKE NEEDS KNOWN. TOLERATING ROOM AIR WELL WITH NO SOB. EXTERNAL CARDIAC TELE MONITOR READS SR BBB HR AT 62. DENIES PAIN OR DISCOMFORT AT THIS TIME. WOUND CARE DONE; BLE DRESSING KEPT C/D/I. LAC #20G S/L PATENT AND INTACT. PATIENT DENIES WEAKNESS, SLURRED SPEECH, DIFFICULTY SWALLOWING, FACIAL DROOP. RCW PORTACATH FOR CHEMO NOTED. SAFETY MEASURES IN PLACE: BED IN LOWEST LOCKED POSITION, SIDE RAILS UPX2, CALL LIGHT WITHIN EASY REACH. PT IN STABLE CONDITION, WILL ENDORSE PLAN OF CARE TO ONCOMING MORNING RN.
[2021-07-06 06:30] LABS: ALBUMIN 3.8 g/dL (3.4-5.0); BILIRUBIN,TOTAL 1.1 mg/dL (0.2-1.0); CALCIUM, SERUM 8.7 mg/dL (8.5-10.1); CREATININE 1.1 mg/dL (0.6-1.3); PHOSPHORUS 2.9 mg/dL (2.5-4.9); POTASSIUM 3.2 mmol/L (3.5-5.1); TOTAL PROTEIN, SERUM 6.9 g/dL (6.4-8.2)
[2021-07-06 06:41] LABS: BILIRUBIN,URINE NEGATIVE (NEGATIVE); COLOR,URINE YELLOW (YELLOW); LEUKOCYTE ESTERASE ,URINE NEGATIVE (NEGATIVE); NITRITE, URINE NEGATIVE (NEGATIVE); PH,URINE 6.5 (5.0-8.0); PROTEIN,URINE 30 mg/dl (NEGATIVE); UGLUCOSE NEGATIVE (NEGATIVE); UROBILINOGEN,URINE 0.2 EU/dL (0.2)
[2021-07-06] MEDS ORDERED: DILT-2 PO (07:46)
[2021-07-06] MEDS ORDERED: LACT1CAP71 PO (07:46)
[2021-07-06 08:00] VITALS: BP 161/94
--- NOTE | 2021-07-06 08:00 | NUR ---
tele road traffic controller: initial assessment received pt in bed awake, a/ox4. no c/o pain or any discomfort. ble still edematous. encourage to elevate ble while in bed and chair. instructed to call for assistance. will continue to monitor.
[2021-07-06 08:13] LABS: BACTERIA,URINE Rare /HPF (None Seen); RBC,URINE 0-2 /HPF (0-2); SQUAMOUS EPITHELIAL CELL,UR Rare /HPF (None Seen)
[2021-07-06] MEDS: ASPIRIN EC 325 MG TABLET.DR PO SCH (08:59)
[2021-07-06] MEDS: PANTOPRAZOLE 40 MG TABLET.DR PO SCH (08:59)
[2021-07-06] MEDS ORDERED: POTASSIUM CHLORIDE 20 MEQ TAB.PRT.SR PO ONE (10:00)
--- NOTE | 2021-07-06 10:25 | NUR ---
tele cell phone repair technician: md visit seen and examined by dr. godinez with orders. orders read back and carried out and acknowledged.
--- NOTE | 2021-07-06 12:00 | NUR ---
tele track repair supervisor: notes having lunch at this time. no distress noted. will continue to monitor.
--- NOTE | 2021-07-06 15:25 | NUR ---
tele logging assistant notes: neuro consult seen and examined by dr. calderón with orders and updated plan of care. orders acknowledged.
[2021-07-06 16:00] VITALS: BP 136/90
--- NOTE | 2021-07-06 16:00 | NUR ---
tele client support manager: notes mri checklist completed and signed by pt. pt verbalized understanding.
[2021-07-06] MEDS: DOCUSATE SODIUM 100 MG CAPSULE PO SCH ×2 (17:00→17:22)
--- NOTE | 2021-07-06 18:40 | NUR ---
tele channel marketing coordinator: dpm consult dr. perez here and made aware re: consult for dr. deal, stated, "we work together." dr. perez at bedside for assessment, pt refused to dress the ble, stated, "i want to wait tomorrow for dr. deal."
--- NOTE | 2021-07-06 19:00 | NUR ---
tele keyliner: notes report given to kirk perdue) for continuity of care.
[2021-07-06 20:00] VITALS: BP 142/90
--- NOTE | 2021-07-06 20:58 | NUR ---
Received alert and orientated X4 smiling a talkative about his health reassured him he was in a good place and to recieve the care he is needed ben lower legs swollen and wrapped in gauze movement presenr no noted SOB noted he has special shoes that he is wearing Stated Last BM 07/06 refusing to take senokot tonight
[2021-07-06] MEDS: ATORVASTATIN 40 MG TABLET PO SCH (21:40)
[2021-07-06] MEDS: SENNOSIDES 8.6 MG TABLET PO SCH (21:49)
[2021-07-06] MEDS: ENOXAPARIN SODIUM 40 MG/0.4 ML DISP.SYRIN SQ SCH (22:10)
[2021-07-07] VITALS: BP 139/83
[2021-07-07] MEDS ORDERED: DILTIAZEM HCL CD 120 MG PO SCH (00:30)
--- NOTE | 2021-07-07 03:56 | NUR ---
closing notes: pleasant and cooperative. ambulates in the room independently had me call the MD at 0020 so the MD could order him his Cardizem he takes every night at midnight His leg are wrapped with gauze CDI ben legs swollen noted wearing special shoes he is alert and orientated logical thing clear thoughts
[2021-07-07 04:00] VITALS: BP 154/95
[2021-07-07] MEDS: PANTOPRAZOLE 40 MG TABLET.DR PO SCH (07:37)
--- NOTE | 2021-07-07 07:46 | NUR ---
RETAIL SALESWORKER NOTES RECEIVED PATIENT IN BED, AWAKE, A&O X 4, NOT IN ANY FORM OF ACUTE DISTRESS NOTED. ON ROOM AIR TOLERATING WELL, ON EXTERNAL MONITOR SHOWING SINUS RHYTHM WITH PAC'S HR AT 70'S. IV ACCESS ON LAC G#20 PATENT, INTACT AND FLUSHES WELL. WITH JOHN PAUL CATH NOTED ON LEFT CHEST WALL. SAFETY PRECAUTIONS IN PLACE: BED ON LOWEST LOCKED POSITION. SIDE RAILS UP X 2, CALL LIGHT WITHIN EASY REACH. WILL CONTINUE TO MONITOR ACCORDINGLY.
[2021-07-07 08:00] VITALS: BP_SYST 136; BP_SYST 156; BP_DIAS 100
[2021-07-07] MEDS: ASPIRIN EC 325 MG TABLET.DR PO SCH (08:35)
[2021-07-07] MEDS: DOCUSATE SODIUM 100 MG CAPSULE PO SCH ×2 (08:35→16:09)
[2021-07-07 12:00] VITALS: BP 168/97
[2021-07-07] MEDS ORDERED: ALPRAZOLAM 0.25 MG TABLET PO PRN (13:30)
[2021-07-07 14:03] LABS: CALCIUM, SERUM 8.9 mg/dL (8.5-10.1); POTASSIUM 3.6 mmol/L (3.5-5.1)
--- NOTE | 2021-07-07 15:34 | NUR ---
RN NOTES RECEIVED A PHONE CALL FROM MORGAN THE AUTOMATION ENGINEERING MANAGER, WALKED THROUGH THE INTERVENTION NEEDED TO DO DAILY. PT, OT, ST, FASHION CONSULTANT SELLING ORDERED PER STROKE PROTOCOL. READING MATERIALS IN ALIGNING TO PATIENT'S CONDITION PROVIDED. STROKE SATISFACTION SURVEY DONE AND FILED TO PATIENT'S CHART.
--- NOTE | 2021-07-07 15:43 | NUR ---
RN NOTES WOUND DRESSING CHANGE ORDERED.
[2021-07-07 16:00] VITALS: BP 141/77
[2021-07-07] MEDS ORDERED: ALPRAZOLAM 0.25 MG TABLET PO ONE (16:30)
--- NOTE | 2021-07-07 18:22 | NUR ---
ACCOUNTS PAYABLE ADMINISTRATOR CLOSING NOTES PATIENT IN BED, AWAKE, A&O X 4, NOT IN ANY FORM OF ACUTE DISTRESS NOTED. ON ROOM AIR TOLERATING WELL, ON EXTERNAL MONITOR SHOWING SINUS RHYTHM WITH BBB AND PAC'S HR AT 70'S. IV ACCESS ON LAC G#20 PATENT, INTACT AND FLUSHES WELL. WITH JOHN PAUL CATH NOTED ON LEFT CHEST WALL. SAFETY PRECAUTIONS IN PLACE: BED ON LOWEST LOCKED POSITION. SIDE RAILS UP X 2, CALL LIGHT WITHIN EASY REACH. ALL NEEDS ATTENDED AND MET. DUE MEDS GIVEN ORDERED. WILL ENDORSE TO ONCOMING SHIFT FOR ADONAY.
--- NOTE | 2021-07-07 19:30 | NUR ---
RN OPENING NOTE PATIENT WALKING AROUND AT BEDSIDE, PATIENT IS ABLE TO MAKE NEEDS KNOWN. NO PAIN AT THIS TIME. PATIENT IS A/O X 4. PATIENT COMPLAINING OF CONSTIPATION, HAS SENNOKOT DUE AT 2200. PATIENT HAS A LAC 20 G SALIN LOCKED, RCW PORTACATH PRESENT WELL. TELE MONITOR READS SR 71 BPM WITH BBB. DRESSINGS ON BLE PRESENT, C/D/I. SAFETY MEASURES IN PLACE: BED LOCKED AND IN LOWEST POSITION, CALL LIGHT WITHIN REACH, SIDE RAILS UP. WILL MONITOR PATIENT CLOSELY.
[2021-07-07 20:00] VITALS: BP 139/90
[2021-07-07] MEDS: SENNOSIDES 8.6 MG TABLET PO SCH (21:21)
[2021-07-07] MEDS: ATORVASTATIN 40 MG TABLET PO SCH (21:21)
[2021-07-07] MEDS: ENOXAPARIN SODIUM 40 MG/0.4 ML DISP.SYRIN SQ SCH (22:48)
[2021-07-08] VITALS: BP 161/102
[2021-07-08] MEDS ORDERED: DILTIAZEM HCL CD 120 MG PO SCH
--- NOTE | 2021-07-08 | NUR ---
RN NOTE BP 169/104, THEN RECHECKED IT WAS 177/108. INFORMED MD WAITING FOR RESPONSE AND ADVISEMENT.
--- NOTE | 2021-07-08 03:58 | NUR ---
RN NOTE BP NOW LOWER 158/97
[2021-07-08 04:00] VITALS: BP 158/97
[2021-07-08 06:14] LABS: BASOPHILS % (AUTO) 0.6 % (0.0-2.0); EOSINOPHILS % (AUTO) 5.8 % (0.0-6.0); HEMATOCRIT 43 % (39-51); HEMOGLOBIN 14.4 g/dL (13.5-17.5); LYMPHOCYTES # (AUTO) 0.6 K/uL (0.8-4.8); LYMPHOCYTES % (AUTO) 8.9 % (20.0-44.0); MEAN CORPUSCULAR HGB CONC 34 g/dl (31.0-36.0); MEAN CORPUSCULAR VOLUME 90 fL (80-96); MONOCYTES # (AUTO) 0.5 K/uL (0.1-1.30); MONOCYTES % (AUTO) 8.3 % (2.0-12.0); NEUTROPHILS # (AUTO) 4.8 K/uL (1.8-8.9); NEUTROPHILS % (AUTO) 76.4 % (43.0-81.0); PLATELET COUNT (AUTO) 134 K/uL (150-450); RED BLOOD CELL COUNT(AUTO) 4.73 MIL/uL (4.5-6.0); WHITE BLOOD COUNT (AUTO) 6.3 K/uL (4.3-11.0)
--- NOTE | 2021-07-08 06:41 | NUR ---
CELLOPHANE BATH MIXER REPORTS HR IN 20s. CHARGE NURSE RECOMMEND STAT EKG. Addendum: 07/08/21 at 0643 by CAIN ALBRIGHT RN PATIENT'S HR NOW IN 61 BPM
[2021-07-08 06:43] LABS: CALCIUM, SERUM 8.5 mg/dL (8.5-10.1); CREATININE 0.9 mg/dL (0.6-1.3); PHOSPHORUS 3.3 mg/dL (2.5-4.9); POTASSIUM 3.2 mmol/L (3.5-5.1)
--- NOTE | 2021-07-08 07:30 | NUR ---
RN CLOSING NOTE PATIENT IN BED, AWAKE. PATIENT IS ABLE TO MAKE NEEDS KNOWN. NO DIZZINESS OR CP REPORTED. IV ACCESS PATENT AND INTACT. BREATHING EVEN AND UNLABORED. ALL ORDERS CARRIED OUT, ALL NEEDS MET AND ATTENDED. SAFETY MEASURES MAINTAINED. ENDORSED TO DAY SHIFT NURSE FOR ADONAY.
[2021-07-08 08:00] VITALS: BP 156/86
--- NOTE | 2021-07-08 08:11 | NUR ---
WOUND CARE CONSULT: PT FOLLOWED BY PODIATRY FOR LOWER LEG ULCERS. PT PRESENTS WITH RT GROIN FOLD REDNESS/RASH PRESENT ON ADMISSION. RECOMMENDATIONS MADE FOR SKIN PROTECTION. PT IS CONTINENT. DISCUSSED SKIN PROTECTION WITH NURSING STAFF. MD IN AGREEMENT WITH PLAN OF CARE.
--- NOTE | 2021-07-08 08:30 | NUR ---
NPO FOR SURG. TODAY.ON MISHA LIGHT FREQ. VS STABLE.O2 ON TELE ON.
[2021-07-08] MEDS ORDERED: POTASSIUM CHLORIDE 20 MEQ TAB.PRT.SR PO ONE (09:30)
[2021-07-08] MEDS: POTASSIUM CL. PREMIX PERIPHER. 50 ML IV SCH ×4 (09:40→17:06)
--- NOTE | 2021-07-08 10:30 | NUR ---
INSISTED ON WALKING TO BRM.PRE-OP TO HAVE BM.TOLERATED FAIRLY WELL.
[2021-07-08 12:00] VITALS: BP 156/88
--- NOTE | 2021-07-08 13:20 | NUR ---
TO OR VIA BED.
--- NOTE | 2021-07-08 16:00 | NUR ---
RETURNED TO RM. FROM OR.LT. CHEST DRESSING DRY AND INTACT,NO DRAINAGE,VS STABLE.NO ACUTE DISTRESS.
--- NOTE | 2021-07-08 16:30 | NUR ---
VOIDING IN URINAL/C/O DYSURIA.REASSURED.ADDITIONALLY C/O SORE THROAT.
[2021-07-08 16:46] VITALS: BP 132/84
[2021-07-08] MEDS: CLOTRIMAZOLE 1% 15 GM TUBE TP SCH (17:06)
--- NOTE | 2021-07-08 18:00 | NUR ---
DEMANDED TO WALK TO BATHRM.ALTHOUGH ADVISED AGAINST IT.LONG O2 TUBING ISSUED,IMPORT CUSTOMS CLEARING AGENT STAYED IN RM.PT. HAD BM.
[2021-07-08] MEDS: ASPIRIN EC 325 MG TABLET.DR PO SCH (18:25)
[2021-07-08] MEDS: DOCUSATE SODIUM 100 MG CAPSULE PO SCH ×2 (18:25→18:26)
[2021-07-08] MEDS: PANTOPRAZOLE 40 MG TABLET.DR PO SCH (18:26)
--- NOTE | 2021-07-08 19:46 | NUR ---
BEAM DOFFER NOTE PATIENT IN BED WITH EYES CLOSED. EASY TO AROUSE. NO S/S OF APPARENT DISTRESS. C/O PAIN AT LEFT ARM THIS TIME --TOLERATING. NO FLUIDS RUNNING AT THIS TIME. TELE MONITOR READING SR-ST 80'S-100'S -- CHANGING. SAFETY IN PLACE. WILL CONTINUE TO MONITOR.
[2021-07-08 20:00] VITALS: BP 134/69
[2021-07-08] MEDS: SENNOSIDES 8.6 MG TABLET PO SCH (21:09)
[2021-07-08] MEDS: ATORVASTATIN 40 MG TABLET PO SCH (21:10)
[2021-07-08] MEDS: ENOXAPARIN SODIUM 40 MG/0.4 ML DISP.SYRIN SQ SCH (23:15)
[2021-07-09] VITALS: BP 147/80
[2021-07-09 04:00] VITALS: BP 168/73
--- NOTE | 2021-07-09 07:20 | NUR ---
BUSINESS SUPPORT OPENING NOTE PATIENT AWAKE IN BED A/O X4, ABLE TO MAKE NEEDS KNOWN. NO C/O PAIN AT THIS TIME. IV ACCESS LAC#20 G SALINE LOCKED, RCW PORTACATH PRESENT WELL. DRESSINGS ON LEFT PACEMAKER INTACT, CLEAN AND DRY. SAFETY MEASURES IN PLACE WITH BED LOCKED AND IN LOWEST POSITION, CALL LIGHT WITHIN REACH, SIDE RAILS UP. WILL MONITOR PATIENT CLOSELY.
--- NOTE | 2021-07-09 07:49 | NUR ---
closing note rn report given to rom for cont. of care.
[2021-07-09 08:00] VITALS: BP 155/74
[2021-07-09] MEDS: ASPIRIN EC 325 MG TABLET.DR PO SCH (08:16)
[2021-07-09] MEDS: DOCUSATE SODIUM 100 MG CAPSULE PO SCH ×2 (08:16→16:40)
[2021-07-09] MEDS: PANTOPRAZOLE 40 MG TABLET.DR PO SCH (08:16)
[2021-07-09] MEDS: CLOTRIMAZOLE 1% 15 GM TUBE TP SCH ×2 (08:18→16:41)
--- NOTE | 2021-07-09 08:30 | NUR ---
MS RN NOTE RECEIVED NEW ORDER PER DR. CASTILLO TO DC TELE MONITOR AND PLACE IN MED SURG. ORDER CARRIED OUT.
--- NOTE | 2021-07-09 09:47 | NUR ---
MS RN NOTE PATIENT C/O OF BAD TASTE IN BACK OF THROAT. RECEIVED ORDER FROM ALONZO LAUREN NP FOR NEW ORDER OF CEPACOL LOZENGES. ORDERS READ BACK AND CARRIED OUT.
[2021-07-09] MEDS ORDERED: MENTHOL/CETYLPYRD (CEPACOL) 1 LOZ LOZENGE PO PRN (10:00)
--- NOTE | 2021-07-09 14:43 | NUR ---
MS RN NOTES PATIENT REFUSED ALL BODY PHOTOS. CONI, CHARGE NURSE AWARE.
--- NOTE | 2021-07-09 15:54 | NUR ---
SS Consult: SS consult requested for stroke protocol. The pt. is a 75 year old male at [facility]. Per pt. he was seeking medical attention for possible stroke due to symptoms of Confusion. The pt. is A&O X4 and makes good eye contact. The pt.'s speech and mood are WNL. Pt. denies SI/HI and denies hallucinations. Pt. states he will return back home[[id number] [address] [facility] [place] [facility] [address]; [phone]] WHEN READY FOR DISCHARGE. Pt. stated he has no children and his support system includes SW from [email or web address], [employer] who is helping him get connecting him with community resources such as free meals by [facility]. SW provided Stroke Empowerment educational material and pt. accepted it.
[2021-07-09 17:47] VITALS: BP 129/84
--- NOTE | 2021-07-09 18:53 | NUR ---
MS BLACK LEATHER BUFFER NOTES PATIENT WAS DISCHARGED WITH STABLE VITAL SIGNS. NO S/S OF DISTRESS NOTED. NO C/O PAIN AT THIS TIME. IV ACCESS AND WRIST BAND REMOVED. PATIENT DISCHARGE SUMMARY AND INSTRUCTIONS REVIEWED AND SIGNED WITH PATIENT. PATIENT VERBALIZED UNDERSTANDING. PATIENT REFUSED ANATOMY PHOTOS PRIOR TO DISCHARGE OFF UNIT. PATIENT WAS PICKED UP BY FRIEND STEFANIA. OBSERVED PATIENT LEAVE UNIT AND GET INTO PRIVATE CAR.
== END 2021-07-09 18:55 | disposition home health service (06) | DRG 243 ==
LOC: ER 20:36 → TELE 22:44 → MED 07-09 08:57
PROVIDERS: ADMIT Hospitalist; ATTEND Nurse Practitioner Acute Care
PROC: 0JH606Z Insertion of Pacemaker, Dual Chamber into Chest Subcutaneous Tissue and Fascia, Open Approach (ICD-10-PCS; principal; 2021-07-08)
PROC: 02HK3JZ Insertion of Pacemaker Lead into Right Ventricle, Percutaneous Approach (ICD-10-PCS; 2021-07-08)
PROC: 02H63JZ Insertion of Pacemaker Lead into Right Atrium, Percutaneous Approach (ICD-10-PCS; 2021-07-08)
DX: I49.5 Sick sinus syndrome (principal); I87.312 Chronic venous hypertension (idiopathic) with ulcer of left lower extremity; L97.929 Non-pressure chronic ulcer of unspecified part of left lower leg with unspecified severity; I44.2 Atrioventricular block, complete; I48.91 Unspecified atrial fibrillation; I50.9 Heart failure, unspecified; Z85.72 Personal history of non-Hodgkin lymphomas; Z86.73 Personal history of transient ischemic attack (TIA), and cerebral infarction without residual deficits; I89.0 Lymphedema, not elsewhere classified; I87.2 Venous insufficiency (chronic) (peripheral); G47.33 Obstructive sleep apnea (adult) (pediatric); Z20.822 Contact with and (suspected) exposure to COVID-19; Z86.718 Personal history of other venous thrombosis and embolism; Z98.890 Other specified postprocedural states; B35.1 Tinea unguium; Z96.649 Presence of unspecified artificial hip joint; E11.622 Type 2 diabetes mellitus with other skin ulcer
CPT/HCPCS: 36415; 70450-TC; 71045-TC; 80048-TC; 80053-TC; 80061-TC; 80076-TC; 81001; 82962-TC; 84100-TC; 84484-TC; 85025-TC; 85730-TC; 87081-TC; 87086-TC; 92507-TC; 92521; 93307-TC; 93880-TC; 97116-TC; 97530-TC; 97535-TC; A6403; C1785; C9803; G0378; J0690; J1650; J2001; J2704; J3480; J7030; J7050

== ENCOUNTER 2021-08-18 13:55 | Outpatient (CLI) | payer MEDICARE, OTHER ==
[~2021-08-18 13:55] MED LIST changes: -ALLO300T2 PO; -DILT180T PO; +LACT1CAP71 PO
[2021-08-18] MEDS ORDERED: BACI/NEOM/POLY B OINT PKT 1 UDPKT PACKET ONE (14:41)
== END 2021-08-18 23:59 | disposition home health service (06) ==
LOC: WOU 13:55
PROVIDERS: ATTEND Podiatrist Foot & Ankle Surgery
DX: S90.211A Contusion of right great toe with damage to nail, initial encounter (principal); X58.XXXA Exposure to other specified factors, initial encounter; Y92.89 Other specified places as the place of occurrence of the external cause; L60.1 Onycholysis; I89.0 Lymphedema, not elsewhere classified; B35.1 Tinea unguium; M79.674 Pain in right toe(s)
CPT/HCPCS: 10140; 29580-LT

== ENCOUNTER 2021-08-25 14:00 | Outpatient (CLI) | payer MEDICARE, OTHER ==
[2021-08-25] MEDS ORDERED: BACI/NEOM/POLY B OINT PKT 1 UDPKT PACKET ONE (14:31)
== END 2021-08-25 23:59 | disposition home health service (06) ==
LOC: WOU 14:00
PROVIDERS: ATTEND Podiatrist Foot & Ankle Surgery
DX: S90.211D Contusion of right great toe with damage to nail, subsequent encounter (principal); X58.XXXD Exposure to other specified factors, subsequent encounter; I89.0 Lymphedema, not elsewhere classified; L60.0 Ingrowing nail; B35.1 Tinea unguium; L60.1 Onycholysis; M79.674 Pain in right toe(s); Z79.01 Long term (current) use of anticoagulants; Z79.899 Other long term (current) drug therapy
CPT/HCPCS: 29580-50

== ENCOUNTER 2021-09-01 14:00 | Outpatient (CLI) | payer MEDICARE, OTHER ==
[2021-09-01] MEDS ORDERED: UREA 10% -AHA 4% CREAM 57 GM TUBE ONE (14:48)
[2021-09-01] MEDS ORDERED: BACI/NEOM/POLY B OINT PKT 1 UDPKT PACKET ONE (15:21)
== END 2021-09-01 23:59 | disposition home health service (06) ==
LOC: WOU 14:00
PROVIDERS: ATTEND Podiatrist Foot & Ankle Surgery
DX: S90.211D Contusion of right great toe with damage to nail, subsequent encounter (principal); X58.XXXD Exposure to other specified factors, subsequent encounter; I83.10 Varicose veins of unspecified lower extremity with inflammation; I89.0 Lymphedema, not elsewhere classified; B35.1 Tinea unguium; L60.1 Onycholysis; Z79.01 Long term (current) use of anticoagulants; Z79.899 Other long term (current) drug therapy
CPT/HCPCS: 29580; A6197

== ENCOUNTER 2021-09-15 14:00 | Outpatient (CLI) | payer MEDICARE, OTHER ==
[2021-09-15] MEDS ORDERED: BACI/NEOM/POLY B OINT PKT 1 UDPKT PACKET ONE (14:32)
== END 2021-09-15 23:59 | disposition home health service (06) ==
LOC: WOU 14:00
PROVIDERS: ATTEND Podiatrist Foot & Ankle Surgery
DX: S90.211D Contusion of right great toe with damage to nail, subsequent encounter (principal); X58.XXXD Exposure to other specified factors, subsequent encounter; I89.0 Lymphedema, not elsewhere classified; L60.0 Ingrowing nail; L60.1 Onycholysis; B35.1 Tinea unguium; M79.674 Pain in right toe(s); Z79.01 Long term (current) use of anticoagulants; Z79.899 Other long term (current) drug therapy
CPT/HCPCS: 29580-50

== ENCOUNTER 2021-10-06 14:00 | Outpatient (CLI) | payer MEDICARE, OTHER ==
[2021-10-06] MEDS ORDERED: BACI/NEOM/POLY B OINT PKT 1 UDPKT PACKET ONE (14:56)
== END 2021-10-06 23:59 | disposition home health service (06) ==
LOC: WOU 14:00
PROVIDERS: ATTEND Podiatrist Foot & Ankle Surgery
DX: I89.0 Lymphedema, not elsewhere classified (principal); L60.1 Onycholysis; B35.1 Tinea unguium; L60.0 Ingrowing nail; M79.674 Pain in right toe(s); S90.211D Contusion of right great toe with damage to nail, subsequent encounter; X58.XXXD Exposure to other specified factors, subsequent encounter; Z79.01 Long term (current) use of anticoagulants; Z79.899 Other long term (current) drug therapy
CPT/HCPCS: 29580-50

== ENCOUNTER 2021-10-21 13:50 | Outpatient (CLI) | payer MEDICARE, OTHER | END 2021-10-21 23:59 | disposition home health service (06) | LOC: WOU 13:50 | PROVIDERS: ATTEND Podiatrist Foot & Ankle Surgery | DX: I87.2 Venous insufficiency (chronic) (peripheral) (principal); I89.0 Lymphedema, not elsewhere classified; L60.0 Ingrowing nail; L60.1 Onycholysis; B35.1 Tinea unguium; Z79.899 Other long term (current) drug therapy; I10 Essential (primary) hypertension; Z79.01 Long term (current) use of anticoagulants | CPT/HCPCS: 29580-50 ==

== ENCOUNTER 2021-11-02 09:48 | Inpatient (IN) | payer MEDICARE, OTHER ==
[~2021-11-02] VITALS: Ht 170.2 cm; Wt 109.3 kg
[2021-11-02 10:49] LABS: BASOPHILS % (AUTO) 0.4 % (0.0-2.0); EOSINOPHILS % (AUTO) 1.1 % (0.0-6.0); HEMATOCRIT 46 % (39-51); HEMOGLOBIN 15.2 g/dL (13.5-17.5); LYMPHOCYTES # (AUTO) 0.5 K/uL (0.8-4.8); LYMPHOCYTES % (AUTO) 6.6 % (20.0-44.0); MEAN CORPUSCULAR HGB CONC 33 g/dl (31.0-36.0); MEAN CORPUSCULAR VOLUME 90 fL (80-96); MONOCYTES # (AUTO) 0.5 K/uL (0.1-1.30); MONOCYTES % (AUTO) 6.1 % (2.0-12.0); NEUTROPHILS # (AUTO) 6.5 K/uL (1.8-8.9); NEUTROPHILS % (AUTO) 85.8 % (43.0-81.0); PLATELET COUNT (AUTO) 132 K/uL (150-450); RED BLOOD CELL COUNT(AUTO) 5.11 MIL/uL (4.5-6.0); WHITE BLOOD COUNT (AUTO) 7.6 K/uL (4.3-11.0)
[2021-11-02] MEDS ORDERED: DILT240T3 PO (10:49)
[2021-11-02] MEDS ORDERED: DOXA2TAB2 PO (10:49)
[2021-11-02] MEDS ORDERED: POTA8CAP20 PO (10:49)
[2021-11-02] MEDS ORDERED: ALLO300T2 PO (10:49)
[2021-11-02] MEDS ORDERED: GABA-532 PO (10:49)
[2021-11-02 11:11] LABS: BILIRUBIN,URINE Negative (NEGATIVE); COLOR,URINE YELLOW (YELLOW); LEUKOCYTE ESTERASE ,URINE Negative (NEGATIVE); NITRITE, URINE Negative (NEGATIVE); PH,URINE 7.5 (5.0-8.0); PROTEIN,URINE 100 mg/dl (NEGATIVE); UGLUCOSE Negative (NEGATIVE); UROBILINOGEN,URINE 0.2 EU/dL (0.2)
[2021-11-02 11:18] LABS: BACTERIA,URINE None seen /HPF (None Seen); SQUAMOUS EPITHELIAL CELL,UR Few /HPF (None Seen); WBC,URINE 0-2 /HPF (0-3)
[2021-11-02 12:21] LABS: CALCIUM, SERUM 8.9 mg/dL (8.5-10.1); CARBON DIOXIDE 30 mmol/L (21-32); CHLORIDE 100 mmol/L (98-107); CREATININE 1.3 mg/dL (0.6-1.3); GLUCOSE 142 mg/dL (74-106); POTASSIUM 3.3 mmol/L (3.5-5.1); SODIUM SERUM 139 mmol/L (136-145); UREA NITROGEN, BLOOD 15 mg/dL (7-18)
[2021-11-02 12:27] LABS: ALANINE AMINOTRANSFERASE 37 U/L (12-78); ALBUMIN 3.7 g/dL (3.4-5.0); ALKALINE PHOSPHATASE 100 U/L (46-116); ASPARTATE AMINOTRANSFERASE 24 U/L (15-37); BILIRUBIN,DIRECT 0.2 mg/dL (0.0-0.2); BILIRUBIN,TOTAL 1.1 mg/dL (0.2-1.0); TOTAL PROTEIN, SERUM 6.9 g/dL (6.4-8.2)
[2021-11-02 12:29] LABS: ACETAMINOPHEN < 0 ug/ml (10-30); ALCOHOL, BLOOD < 3 mg/dL (0-0)
[2021-11-02 12:51] LABS: SERUM AMMONIA 24 umol/L (11-32)
[2021-11-02 14:15] LABS: THYROID STIMULATING HORMONE 4.106 uIU/mL (0.358-3.74)
[2021-11-02] MEDS ORDERED: Z GUARD REMEDY 4 OZ OINT TP PRN (15:00)
[2021-11-02] MEDS ORDERED: ZOLPIDEM TARTRATE 5 MG TABLET PO PRN (15:00)
[2021-11-02] MEDS ORDERED: ONDANSETRON HCL/PF 4 MG/2 ML VIAL IVP PRN (15:00)
[2021-11-02] MEDS ORDERED: MAGNESIUM HYDROXIDE 30 ML UDC PO PRN (15:00)
[2021-11-02] MEDS ORDERED: MAG HYDROX/AL HYDROX/SIMETH 30 ML UDC PO PRN (15:00)
[2021-11-02] MEDS ORDERED: ACETAMINOPHEN 325 MG TABLET PO PRN (15:00)
[2021-11-02] MEDS ORDERED: POTASSIUM CHLORIDE 20 MEQ TAB.PRT.SR PO ONE (15:00)
[2021-11-02 16:00] VITALS: BP 139/73
[2021-11-02] MEDS: GABAPENTIN 100 MG CAPSULE PO SCH (17:00)
[2021-11-02] MEDS ORDERED: DOXAZOSIN MESYLATE 2 MG PO SCH (18:00)
[2021-11-02] MEDS: DOXAZOSIN MESYLATE (1 MG) 1 MG TABLET PO SCH (18:40)
[2021-11-02 20:00] VITALS: BP 120/62
[2021-11-03] VITALS (7 sets, daily range): BP systolic 117–137; BP diastolic 67–79
[2021-11-03 06:26] LABS: BASOPHILS % (AUTO) 0.5 % (0.0-2.0); HEMATOCRIT 45 % (39-51); HEMOGLOBIN 14.8 g/dL (13.5-17.5); LYMPHOCYTES # (AUTO) 0.5 K/uL (0.8-4.8); LYMPHOCYTES % (AUTO) 9.4 % (20.0-44.0); MEAN CORPUSCULAR HGB CONC 33 g/dl (31.0-36.0); MEAN CORPUSCULAR VOLUME 91 fL (80-96); MONOCYTES # (AUTO) 0.5 K/uL (0.1-1.30); MONOCYTES % (AUTO) 7.9 % (2.0-12.0); NEUTROPHILS # (AUTO) 4.5 K/uL (1.8-8.9); NEUTROPHILS % (AUTO) 78.2 % (43.0-81.0); PLATELET COUNT (AUTO) 114 K/uL (150-450); RED BLOOD CELL COUNT(AUTO) 4.93 MIL/uL (4.5-6.0); WHITE BLOOD COUNT (AUTO) 5.7 K/uL (4.3-11.0)
[2021-11-03 07:08] LABS: CALCIUM, SERUM 8.6 mg/dL (8.5-10.1); MAGNESIUM 2.3 mg/dL (1.8-2.4); PHOSPHORUS 3.3 mg/dL (2.5-4.9); POTASSIUM 3.4 mmol/L (3.5-5.1)
[2021-11-03] MEDS: GABAPENTIN 100 MG CAPSULE PO SCH ×2 (08:24→12:19)
[2021-11-03] MEDS: DILTIAZEM HCL CD 240 MG PO SCH (08:25)
[2021-11-03] MEDS: ALLOPURINOL 100 MG TABLET PO SCH (08:25)
[2021-11-03] MEDS: POTASSIUM CHLORIDE 10 MEQ TABLET.SA PO SCH (08:25)
[2021-11-03] MEDS: FUROSEMIDE 40 MG TABLET PO SCH (08:25)
[2021-11-03] MEDS: WARFARIN SODIUM 5 MG TABLET PO SCH (08:32)
[2021-11-03] MEDS ORDERED: Medication Not On Formulary EA (Potassium Chloride 8 MEQ) PO SCH (09:00)
[2021-11-03] MEDS: ASPIRIN 81 MG TAB.CHEW PO SCH (12:19)
[2021-11-03] MEDS: DOXAZOSIN MESYLATE (1 MG) 1 MG TABLET PO SCH (17:29)
[2021-11-03] MEDS: SIMVASTATIN 10 MG TABLET PO SCH (21:45)
[2021-11-03] MEDS ORDERED: SIMVASTATIN 10 MG TABLET PO SCH (22:00)
[2021-11-04 00:33] VITALS: BP 130/64
[2021-11-04 04:05] VITALS: BP 133/70
[2021-11-04 06:26] LABS: BASOPHILS % (AUTO) 0.5 % (0.0-2.0); EOSINOPHILS % (AUTO) 4.9 % (0.0-6.0); HEMATOCRIT 43 % (39-51); HEMOGLOBIN 14.2 g/dL (13.5-17.5); LYMPHOCYTES # (AUTO) 0.6 K/uL (0.8-4.8); LYMPHOCYTES % (AUTO) 8.8 % (20.0-44.0); MEAN CORPUSCULAR HGB CONC 34 g/dl (31.0-36.0); MEAN CORPUSCULAR VOLUME 90 fL (80-96); MONOCYTES # (AUTO) 0.6 K/uL (0.1-1.30); MONOCYTES % (AUTO) 8.5 % (2.0-12.0); NEUTROPHILS # (AUTO) 5.3 K/uL (1.8-8.9); NEUTROPHILS % (AUTO) 77.3 % (43.0-81.0); PLATELET COUNT (AUTO) 124 K/uL (150-450); RED BLOOD CELL COUNT(AUTO) 4.74 MIL/uL (4.5-6.0); WHITE BLOOD COUNT (AUTO) 6.9 K/uL (4.3-11.0)
[2021-11-04 06:37] LABS: CALCIUM, SERUM 8.4 mg/dL (8.5-10.1); MAGNESIUM 2.3 mg/dL (1.8-2.4); PHOSPHORUS 3.4 mg/dL (2.5-4.9); POTASSIUM 3.4 mmol/L (3.5-5.1)
[2021-11-04 08:00] VITALS: BP 135/78
[2021-11-04] MEDS: ASPIRIN 81 MG TAB.CHEW PO SCH (08:38)
[2021-11-04] MEDS: POTASSIUM CHLORIDE 10 MEQ TABLET.SA PO SCH (08:38)
[2021-11-04] MEDS: WARFARIN SODIUM 5 MG TABLET PO SCH (08:41)
[2021-11-04] MEDS: FUROSEMIDE 40 MG TABLET PO SCH (08:41)
[2021-11-04] MEDS: DILTIAZEM HCL CD 240 MG PO SCH (08:42)
[2021-11-04] MEDS: ALLOPURINOL 100 MG TABLET PO SCH (08:42)
[2021-11-04 12:00] VITALS: BP 144/73
[2021-11-04] MEDS ORDERED: ALPRAZOLAM 0.25 MG TABLET PO ONE (13:00)
[2021-11-04 16:00] VITALS: BP 130/68
[2021-11-04] MEDS: DOXAZOSIN MESYLATE (1 MG) 1 MG TABLET PO SCH (18:25)
[2021-11-04 20:00] VITALS: BP 127/74
[2021-11-04] MEDS: SIMVASTATIN 10 MG TABLET PO SCH (21:44)
[2021-11-05 06:42] LABS: BASOPHILS % (AUTO) 0.6 % (0.0-2.0); EOSINOPHILS % (AUTO) 6.1 % (0.0-6.0); HEMATOCRIT 43 % (39-51); HEMOGLOBIN 14.4 g/dL (13.5-17.5); LYMPHOCYTES # (AUTO) 0.5 K/uL (0.8-4.8); LYMPHOCYTES % (AUTO) 8.7 % (20.0-44.0); MEAN CORPUSCULAR HGB CONC 34 g/dl (31.0-36.0); MEAN CORPUSCULAR VOLUME 90 fL (80-96); MONOCYTES # (AUTO) 0.5 K/uL (0.1-1.30); MONOCYTES % (AUTO) 8.3 % (2.0-12.0); NEUTROPHILS # (AUTO) 4.7 K/uL (1.8-8.9); NEUTROPHILS % (AUTO) 76.3 % (43.0-81.0); PLATELET COUNT (AUTO) 122 K/uL (150-450); RED BLOOD CELL COUNT(AUTO) 4.76 MIL/uL (4.5-6.0); WHITE BLOOD COUNT (AUTO) 6.1 K/uL (4.3-11.0)
[2021-11-05 07:04] LABS: CREATININE 1.1 mg/dL (0.6-1.3); MAGNESIUM 2.1 mg/dL (1.8-2.4); PHOSPHORUS 3.3 mg/dL (2.5-4.9); POTASSIUM 3.2 mmol/L (3.5-5.1)
[2021-11-05 08:00] VITALS: BP 138/78
[2021-11-05] MEDS: ASPIRIN 81 MG TAB.CHEW PO SCH (08:44)
[2021-11-05] MEDS: POTASSIUM CHLORIDE 10 MEQ TABLET.SA PO SCH (08:44)
[2021-11-05] MEDS: ALLOPURINOL 100 MG TABLET PO SCH (08:44)
[2021-11-05] MEDS: DILTIAZEM HCL CD 240 MG PO SCH (08:44)
[2021-11-05] MEDS: FUROSEMIDE 40 MG TABLET PO SCH (08:44)
[2021-11-05] MEDS: POTASSIUM CHLORIDE 20 MEQ TAB.PRT.SR PO SCH ×2 (10:27→11:05)
[2021-11-05] MEDS: WARFARIN SODIUM 5 MG TABLET PO SCH (10:27)
[2021-11-05] MEDS ORDERED: ALPRAZOLAM 0.25 MG TABLET ONE (14:44)
[2021-11-05] MEDS ORDERED: ALPRAZOLAM 0.25 MG TABLET PO ONE (15:00)
[2021-11-05 16:00] VITALS: BP 123/72
[2021-11-05] MEDS: DOXAZOSIN MESYLATE (1 MG) 1 MG TABLET PO SCH (18:34)
[2021-11-05 20:00] VITALS: BP 132/78
[2021-11-05] MEDS: SIMVASTATIN 10 MG TABLET PO SCH (21:59)
[2021-11-06 07:39] LABS: BASOPHILS % (AUTO) 0.7 % (0.0-2.0); EOSINOPHILS % (AUTO) 5.9 % (0.0-6.0); HEMATOCRIT 43 % (39-51); HEMOGLOBIN 14.3 g/dL (13.5-17.5); LYMPHOCYTES # (AUTO) 0.7 K/uL (0.8-4.8); LYMPHOCYTES % (AUTO) 11.5 % (20.0-44.0); MEAN CORPUSCULAR HGB CONC 33 g/dl (31.0-36.0); MEAN CORPUSCULAR VOLUME 90 fL (80-96); MONOCYTES # (AUTO) 0.5 K/uL (0.1-1.30); MONOCYTES % (AUTO) 8.5 % (2.0-12.0); NEUTROPHILS # (AUTO) 4.2 K/uL (1.8-8.9); NEUTROPHILS % (AUTO) 73.4 % (43.0-81.0); PLATELET COUNT (AUTO) 126 K/uL (150-450); RED BLOOD CELL COUNT(AUTO) 4.81 MIL/uL (4.5-6.0); WHITE BLOOD COUNT (AUTO) 5.7 K/uL (4.3-11.0)
[2021-11-06 08:00] VITALS: BP 139/75
[2021-11-06] MEDS: ALLOPURINOL 100 MG TABLET PO SCH (08:40)
[2021-11-06] MEDS: ASPIRIN 81 MG TAB.CHEW PO SCH (08:40)
[2021-11-06] MEDS: POTASSIUM CHLORIDE 10 MEQ TABLET.SA PO SCH (08:40)
[2021-11-06] MEDS: WARFARIN SODIUM 5 MG TABLET PO SCH (08:45)
[2021-11-06 08:50] LABS: MAGNESIUM 2.7 mg/dL (1.8-2.4); PHOSPHORUS 3.4 mg/dL (2.5-4.9); POTASSIUM 3.6 mmol/L (3.5-5.1)
[2021-11-06] MEDS: DILTIAZEM HCL CD 240 MG PO SCH (08:53)
[2021-11-06] MEDS: FUROSEMIDE 40 MG TABLET PO SCH (08:53)
[2021-11-06 09:39] LABS: CALCIUM, SERUM 8.3 mg/dL (8.5-10.1)
[2021-11-06] MEDS: CLOTRIMAZOLE 1% 15 GM TUBE TP SCH ×2 (11:24→17:03)
[2021-11-06] MEDS ORDERED: ASPI-1169 PO (13:31)
[2021-11-06] MEDS ORDERED: SIMV10TA98 PO (13:31)
[2021-11-06 15:42] VITALS: BP 129/77
[2021-11-06 17:07] VITALS: BP 129/77
[2021-11-06] MEDS: DOXAZOSIN MESYLATE (1 MG) 1 MG TABLET PO SCH (17:07)
== END 2021-11-06 20:45 | DRG 69 ==
LOC: ER 09:49 → TELE 14:47 → MED 11-05 01:37
PROVIDERS: ADMIT Family Medicine; ATTEND Student in an Organized Health Care Education/Training Program
DX: G45.9 Transient cerebral ischemic attack, unspecified (principal); G93.40 Encephalopathy, unspecified; E87.6 Hypokalemia; I10 Essential (primary) hypertension; I48.91 Unspecified atrial fibrillation; Z86.73 Personal history of transient ischemic attack (TIA), and cerebral infarction without residual deficits; Z95.0 Presence of cardiac pacemaker; Z86.718 Personal history of other venous thrombosis and embolism; Z85.72 Personal history of non-Hodgkin lymphomas; I87.2 Venous insufficiency (chronic) (peripheral); R73.9 Hyperglycemia, unspecified; I87.309 Chronic venous hypertension (idiopathic) without complications of unspecified lower extremity; I89.0 Lymphedema, not elsewhere classified; Z20.822 Contact with and (suspected) exposure to COVID-19; R93.1 Abnormal findings on diagnostic imaging of heart and coronary circulation
CPT/HCPCS: 36415; 70450-TC; 71045-TC; 80048-TC; 80061-TC; 80076-TC; 81001; 82140-TC; 82962-TC; 83605-TC; 83735-TC; 84100-TC; 84439-TC; 84443-TC; 84484-TC; 85025-TC; 85610-TC; 87040-TC; 87081-TC; 87086-TC; 93307-TC; 93970-TC; 97116-TC; 97530-TC; C9803; G0378; G0480

== ENCOUNTER 2021-12-08 13:30 | Outpatient (CLI) | payer MEDICARE, OTHER ==
[~2021-12-08 13:30] MED LIST changes: +ALLO300T2 PO; +ASPI-1169 PO; +DILT240T3 PO; +DOXA2TAB2 PO; -LACT1CAP71 PO; +POTA8CAP20 PO; +SIMV10TA98 PO
== END 2021-12-08 23:59 | disposition home health service (06) ==
LOC: WOU 13:30
PROVIDERS: ATTEND Podiatrist Foot & Ankle Surgery
DX: I89.0 Lymphedema, not elsewhere classified (principal); I87.2 Venous insufficiency (chronic) (peripheral); L60.1 Onycholysis; B35.1 Tinea unguium; Z86.73 Personal history of transient ischemic attack (TIA), and cerebral infarction without residual deficits
CPT/HCPCS: 15271; 29580-50; Q4158

== ENCOUNTER 2022-01-05 13:30 | Outpatient (CLI) | payer MEDICARE, OTHER | END 2022-01-05 23:59 | disposition home health service (06) | LOC: WOU 13:30 | PROVIDERS: ATTEND Podiatrist Foot & Ankle Surgery | DX: I89.0 Lymphedema, not elsewhere classified (principal); I87.2 Venous insufficiency (chronic) (peripheral); B35.1 Tinea unguium; L60.1 Onycholysis; Z79.01 Long term (current) use of anticoagulants; Z79.899 Other long term (current) drug therapy | CPT/HCPCS: 29580-50; 97602-TC ==

== ENCOUNTER → 2022-01-22 | Outpatient (CLI) | payer MEDICARE, OTHER | END | disposition home health service (06) | LOC: WOU 12:50 | PROVIDERS: ATTEND Podiatrist Foot & Ankle Surgery | DX: I89.0 Lymphedema, not elsewhere classified (principal); L60.1 Onycholysis; B35.1 Tinea unguium; I87.2 Venous insufficiency (chronic) (peripheral); Z79.01 Long term (current) use of anticoagulants; Z79.899 Other long term (current) drug therapy; I10 Essential (primary) hypertension | CPT/HCPCS: 29580-50 ==

== ENCOUNTER → 2022-02-05 | Outpatient (CLI) | payer MEDICARE, OTHER | END | disposition home health service (06) | LOC: WOU 13:05 | PROVIDERS: ATTEND Podiatrist Foot & Ankle Surgery | DX: I89.0 Lymphedema, not elsewhere classified (principal); I87.323 Chronic venous hypertension (idiopathic) with inflammation of bilateral lower extremity; L60.1 Onycholysis; B35.1 Tinea unguium; I10 Essential (primary) hypertension; Z79.01 Long term (current) use of anticoagulants; Z79.899 Other long term (current) drug therapy | CPT/HCPCS: 29580-50 ==

== ENCOUNTER 2022-02-19 10:50 | Outpatient (CLI) | payer MEDICARE, OTHER | END 2022-02-19 23:59 | disposition home health service (06) | LOC: WOU 10:50 | PROVIDERS: ATTEND Podiatrist Foot & Ankle Surgery | DX: B35.1 Tinea unguium (principal); L60.1 Onycholysis; I89.0 Lymphedema, not elsewhere classified; I10 Essential (primary) hypertension; Z95.0 Presence of cardiac pacemaker | CPT/HCPCS: 29580-50 ==

== ENCOUNTER 2022-03-05 13:40 | Outpatient (CLI) | payer MEDICARE, OTHER | END 2022-03-05 23:59 | disposition home health service (06) | LOC: WOU 13:40 | PROVIDERS: ATTEND Podiatrist Foot & Ankle Surgery | DX: I89.0 Lymphedema, not elsewhere classified (principal); I87.2 Venous insufficiency (chronic) (peripheral); L60.1 Onycholysis; B35.1 Tinea unguium; I10 Essential (primary) hypertension; Z79.01 Long term (current) use of anticoagulants; Z79.899 Other long term (current) drug therapy | CPT/HCPCS: 29580-50 ==

== ENCOUNTER 2022-03-26 13:00 | Outpatient (CLI) | payer MEDICARE, OTHER | END 2022-03-26 23:59 | disposition home health service (06) | LOC: WOU 13:00 | PROVIDERS: ATTEND Podiatrist Foot & Ankle Surgery | DX: I89.0 Lymphedema, not elsewhere classified (principal); I87.2 Venous insufficiency (chronic) (peripheral); I10 Essential (primary) hypertension; B35.1 Tinea unguium; L60.1 Onycholysis; M79.672 Pain in left foot; M79.671 Pain in right foot; Z95.0 Presence of cardiac pacemaker | CPT/HCPCS: 29580-50 ==

== ENCOUNTER → 2022-04-09 | Outpatient (CLI) | payer MEDICARE, OTHER ==
[~2022-04-09] MED LIST changes: +HYDROCORTISONE 1% CREAM 28.35 GM TUBE TP ONE
== END | disposition home health service (06) ==
LOC: WOU 13:10
PROVIDERS: ATTEND Podiatrist Foot & Ankle Surgery
DX: I87.323 Chronic venous hypertension (idiopathic) with inflammation of bilateral lower extremity (principal); I87.2 Venous insufficiency (chronic) (peripheral); I89.0 Lymphedema, not elsewhere classified; L60.1 Onycholysis; B35.1 Tinea unguium; I10 Essential (primary) hypertension; Z79.899 Other long term (current) drug therapy; Z79.01 Long term (current) use of anticoagulants
CPT/HCPCS: 29580-50; 97602-TC

== ENCOUNTER 2022-04-30 11:00 | Outpatient (CLI) | payer MEDICARE, OTHER ==
[~2022-04-30 11:00] MED LIST changes: -HYDROCORTISONE 1% CREAM 28.35 GM TUBE TP ONE
== END 2022-04-30 23:59 | disposition home health service (06) ==
LOC: WOU 11:00
PROVIDERS: ATTEND Podiatrist Foot & Ankle Surgery
DX: I87.323 Chronic venous hypertension (idiopathic) with inflammation of bilateral lower extremity (principal); I89.0 Lymphedema, not elsewhere classified; B35.1 Tinea unguium; L60.1 Onycholysis; Z79.01 Long term (current) use of anticoagulants; Z79.899 Other long term (current) drug therapy
CPT/HCPCS: 29580-50

== ENCOUNTER → 2022-05-21 | Outpatient (CLI) | payer MEDICARE, OTHER | END | disposition home health service (06) | LOC: WOU 11:00 | PROVIDERS: ATTEND Podiatrist Foot & Ankle Surgery | DX: I87.2 Venous insufficiency (chronic) (peripheral) (principal); L97.828 Non-pressure chronic ulcer of other part of left lower leg with other specified severity; I87.322 Chronic venous hypertension (idiopathic) with inflammation of left lower extremity; I89.0 Lymphedema, not elsewhere classified; B35.1 Tinea unguium; L60.1 Onycholysis; Z79.01 Long term (current) use of anticoagulants; Z79.899 Other long term (current) drug therapy | CPT/HCPCS: 11042; 29580; A6253 ==

== ENCOUNTER 2022-05-28 13:00 | Outpatient (CLI) | payer MEDICARE, OTHER | END 2022-05-28 23:59 | disposition home health service (06) | LOC: WOU 13:00 | PROVIDERS: ATTEND Podiatrist Foot & Ankle Surgery | DX: I87.312 Chronic venous hypertension (idiopathic) with ulcer of left lower extremity (principal); I87.323 Chronic venous hypertension (idiopathic) with inflammation of bilateral lower extremity; L97.822 Non-pressure chronic ulcer of other part of left lower leg with fat layer exposed; I89.0 Lymphedema, not elsewhere classified; L60.1 Onycholysis; B35.1 Tinea unguium; I10 Essential (primary) hypertension; Z79.01 Long term (current) use of anticoagulants; Z79.899 Other long term (current) drug therapy | CPT/HCPCS: 29580-LT ==

== ENCOUNTER 2022-06-11 10:50 | Outpatient (CLI) | payer MEDICARE, OTHER | END 2022-06-11 23:59 | disposition home health service (06) | LOC: WOU 10:50 | PROVIDERS: ATTEND Podiatrist Foot & Ankle Surgery | DX: I87.332 Chronic venous hypertension (idiopathic) with ulcer and inflammation of left lower extremity (principal); I89.0 Lymphedema, not elsewhere classified; L97.822 Non-pressure chronic ulcer of other part of left lower leg with fat layer exposed; R23.8 Other skin changes; Z86.73 Personal history of transient ischemic attack (TIA), and cerebral infarction without residual deficits; I10 Essential (primary) hypertension; Z79.01 Long term (current) use of anticoagulants; Z95.0 Presence of cardiac pacemaker; I87.321 Chronic venous hypertension (idiopathic) with inflammation of right lower extremity; B35.1 Tinea unguium; L60.1 Onycholysis | CPT/HCPCS: 29580-50 ==

== ENCOUNTER → 2022-07-02 | Outpatient (CLI) | payer MEDICARE, OTHER | END | disposition home health service (06) | LOC: WOU 13:15 | PROVIDERS: ATTEND Podiatrist Foot & Ankle Surgery | DX: I87.2 Venous insufficiency (chronic) (peripheral) (principal); I89.0 Lymphedema, not elsewhere classified; B35.1 Tinea unguium; L60.0 Ingrowing nail; L60.3 Nail dystrophy; L60.1 Onycholysis; M79.675 Pain in left toe(s); M79.674 Pain in right toe(s); Z79.01 Long term (current) use of anticoagulants; Z79.899 Other long term (current) drug therapy | CPT/HCPCS: 29580-50 ==

== ENCOUNTER 2022-07-16 13:00 | Outpatient (CLI) | payer MEDICARE, OTHER | END 2022-07-16 23:59 | disposition home or self-care (01) | LOC: WOU 13:00 | PROVIDERS: ATTEND Podiatrist Foot & Ankle Surgery | DX: I89.0 Lymphedema, not elsewhere classified (principal); I87.2 Venous insufficiency (chronic) (peripheral); L60.0 Ingrowing nail; L60.1 Onycholysis; B35.1 Tinea unguium; L60.3 Nail dystrophy; M79.672 Pain in left foot; M79.671 Pain in right foot; I10 Essential (primary) hypertension; Z79.899 Other long term (current) drug therapy | CPT/HCPCS: 29580-50 ==

== ENCOUNTER 2022-07-30 13:05 | Outpatient (CLI) | payer MEDICARE, OTHER | END 2022-07-30 23:59 | disposition home or self-care (01) | LOC: WOU 13:05 | PROVIDERS: ATTEND Podiatrist Foot & Ankle Surgery | DX: I89.0 Lymphedema, not elsewhere classified (principal); L60.1 Onycholysis; B35.1 Tinea unguium; I10 Essential (primary) hypertension; Z79.01 Long term (current) use of anticoagulants; Z95.0 Presence of cardiac pacemaker; Z86.73 Personal history of transient ischemic attack (TIA), and cerebral infarction without residual deficits; Z79.899 Other long term (current) drug therapy | CPT/HCPCS: 29580-50 ==

== ENCOUNTER → 2022-08-13 | Outpatient (CLI) | payer MEDICARE, OTHER | END | disposition home health service (06) | LOC: WOU 13:00 | PROVIDERS: ATTEND Podiatrist Foot & Ankle Surgery | DX: I87.2 Venous insufficiency (chronic) (peripheral) (principal); I89.0 Lymphedema, not elsewhere classified; B35.1 Tinea unguium; L60.1 Onycholysis; L60.0 Ingrowing nail; Z79.01 Long term (current) use of anticoagulants; Z79.899 Other long term (current) drug therapy | CPT/HCPCS: 29580-50 ==

== ENCOUNTER 2022-08-27 12:45 | Outpatient (CLI) | payer MEDICARE, OTHER | END 2022-08-27 23:59 | disposition home health service (06) | LOC: WOU 12:45 | PROVIDERS: ATTEND Podiatrist Foot & Ankle Surgery | DX: I87.312 Chronic venous hypertension (idiopathic) with ulcer of left lower extremity (principal); L97.828 Non-pressure chronic ulcer of other part of left lower leg with other specified severity; S90.425A Blister (nonthermal), left lesser toe(s), initial encounter; X58.XXXA Exposure to other specified factors, initial encounter; Y92.89 Other specified places as the place of occurrence of the external cause; I89.0 Lymphedema, not elsewhere classified; L60.1 Onycholysis; B35.1 Tinea unguium; Z79.01 Long term (current) use of anticoagulants; Z79.899 Other long term (current) drug therapy; I10 Essential (primary) hypertension; Z95.0 Presence of cardiac pacemaker | CPT/HCPCS: 11042; 29580-LT ==

== ENCOUNTER 2022-09-10 12:50 | Outpatient (CLI) | payer MEDICARE, OTHER | END 2022-09-10 23:59 | disposition home health service (06) | LOC: WOU 12:50 | PROVIDERS: ATTEND Podiatrist Foot & Ankle Surgery | DX: I89.0 Lymphedema, not elsewhere classified (principal); L60.1 Onycholysis; B35.1 Tinea unguium; I87.2 Venous insufficiency (chronic) (peripheral); I10 Essential (primary) hypertension; Z79.01 Long term (current) use of anticoagulants; Z95.0 Presence of cardiac pacemaker | CPT/HCPCS: 29580-50 ==

== ENCOUNTER 2022-10-01 13:00 | Outpatient (CLI) | payer MEDICARE, OTHER | END 2022-10-01 23:59 | disposition home health service (06) | LOC: WOU 13:00 | PROVIDERS: ATTEND Podiatrist Foot & Ankle Surgery | DX: I87.2 Venous insufficiency (chronic) (peripheral) (principal); L97.518 Non-pressure chronic ulcer of other part of right foot with other specified severity; I89.0 Lymphedema, not elsewhere classified; B35.1 Tinea unguium; L60.1 Onycholysis; Z79.01 Long term (current) use of anticoagulants; Z79.899 Other long term (current) drug therapy | CPT/HCPCS: 29580-50 ==

== ENCOUNTER 2022-10-20 12:52 | Outpatient (CLI) | payer MEDICARE, OTHER | END 2022-10-20 23:59 | disposition home health service (06) | LOC: WOU 12:52 | PROVIDERS: ATTEND Podiatrist Foot & Ankle Surgery | DX: I89.0 Lymphedema, not elsewhere classified (principal); L60.1 Onycholysis; B35.1 Tinea unguium; I10 Essential (primary) hypertension | CPT/HCPCS: 29580-50 ==

== ENCOUNTER 2022-11-12 13:00 | Outpatient (CLI) | payer MEDICARE, OTHER | END 2022-11-12 23:59 | disposition home health service (06) | LOC: WOU 13:00 | PROVIDERS: ATTEND Podiatrist Foot & Ankle Surgery | DX: I87.2 Venous insufficiency (chronic) (peripheral) (principal); I89.0 Lymphedema, not elsewhere classified; L60.1 Onycholysis; B35.1 Tinea unguium; I10 Essential (primary) hypertension; Z79.01 Long term (current) use of anticoagulants; Z79.899 Other long term (current) drug therapy | CPT/HCPCS: 29580-50 ==

== ENCOUNTER 2022-12-03 11:50 | Outpatient (CLI) | payer MEDICARE, OTHER | END 2022-12-03 23:59 | disposition home health service (06) | LOC: WOU 11:50 | PROVIDERS: ATTEND Podiatrist Foot & Ankle Surgery | DX: I89.0 Lymphedema, not elsewhere classified (principal); I87.2 Venous insufficiency (chronic) (peripheral); L60.1 Onycholysis; B35.1 Tinea unguium; I10 Essential (primary) hypertension; Z95.0 Presence of cardiac pacemaker; Z79.01 Long term (current) use of anticoagulants | CPT/HCPCS: 29580-50 ==

== ENCOUNTER 2022-12-24 13:01 | Outpatient (CLI) | payer MEDICARE, OTHER | END 2022-12-24 23:59 | disposition home health service (06) | LOC: WOU 13:01 | PROVIDERS: ATTEND Podiatrist Foot & Ankle Surgery | DX: I87.323 Chronic venous hypertension (idiopathic) with inflammation of bilateral lower extremity (principal); I89.0 Lymphedema, not elsewhere classified; L60.0 Ingrowing nail; L60.1 Onycholysis; B35.1 Tinea unguium; Z79.01 Long term (current) use of anticoagulants; Z79.899 Other long term (current) drug therapy | CPT/HCPCS: 29580; A6454 ==

== ENCOUNTER → 2023-01-21 | Outpatient (CLI) | payer MEDICARE, OTHER | END | disposition home health service (06) | LOC: WOU 11:45 | PROVIDERS: ATTEND Podiatrist Foot & Ankle Surgery | DX: I87.323 Chronic venous hypertension (idiopathic) with inflammation of bilateral lower extremity (principal); I89.0 Lymphedema, not elsewhere classified; B35.1 Tinea unguium; L60.1 Onycholysis; I10 Essential (primary) hypertension; Z79.01 Long term (current) use of anticoagulants; Z79.899 Other long term (current) drug therapy | CPT/HCPCS: 29580; A6197; A6454 ==

== ENCOUNTER → 2023-02-18 | Outpatient (CLI) | payer MEDICARE, OTHER | END | disposition home health service (06) | LOC: WOU 12:45 | PROVIDERS: ATTEND Podiatrist Foot & Ankle Surgery | DX: I87.2 Venous insufficiency (chronic) (peripheral) (principal); I89.0 Lymphedema, not elsewhere classified; B35.1 Tinea unguium; L60.1 Onycholysis; Z79.01 Long term (current) use of anticoagulants; Z79.899 Other long term (current) drug therapy; M79.675 Pain in left toe(s); M79.674 Pain in right toe(s) | CPT/HCPCS: 29580; A6454 ==

== ENCOUNTER 2023-03-11 13:43 | Outpatient (CLI) | payer MEDICARE, OTHER | END 2023-03-11 23:59 | disposition home health service (06) | LOC: WOU 13:43 | PROVIDERS: ATTEND Podiatrist Foot & Ankle Surgery | DX: I87.312 Chronic venous hypertension (idiopathic) with ulcer of left lower extremity (principal); L97.828 Non-pressure chronic ulcer of other part of left lower leg with other specified severity; I89.0 Lymphedema, not elsewhere classified; L84 Corns and callosities; L60.1 Onycholysis; B35.1 Tinea unguium; L60.0 Ingrowing nail; Z79.01 Long term (current) use of anticoagulants | CPT/HCPCS: 29580; A6454 ==

== ENCOUNTER 2023-03-18 11:15 | Outpatient (CLI) | payer MEDICARE, OTHER | END 2023-03-18 23:59 | disposition home health service (06) | LOC: WOU 11:15 | PROVIDERS: ATTEND Podiatrist Foot & Ankle Surgery | DX: I87.312 Chronic venous hypertension (idiopathic) with ulcer of left lower extremity (principal); L97.222 Non-pressure chronic ulcer of left calf with fat layer exposed; I89.0 Lymphedema, not elsewhere classified; B35.1 Tinea unguium; L60.1 Onycholysis; Z79.01 Long term (current) use of anticoagulants | CPT/HCPCS: 29580; A6197; A6454; A6452 ==

== ENCOUNTER 2023-04-08 12:50 | Outpatient (CLI) | payer MEDICARE, OTHER | END 2023-04-08 23:59 | disposition home health service (06) | LOC: WOU 12:50 | PROVIDERS: ATTEND Podiatrist Foot & Ankle Surgery | DX: I89.0 Lymphedema, not elsewhere classified (principal); L97.222 Non-pressure chronic ulcer of left calf with fat layer exposed; B35.1 Tinea unguium; L60.1 Onycholysis; I10 Essential (primary) hypertension; Z79.01 Long term (current) use of anticoagulants | CPT/HCPCS: 29580; A6454; A4649 ==

== ENCOUNTER 2023-05-20 13:10 | Outpatient (CLI) | payer MEDICARE, OTHER | END 2023-05-20 23:59 | disposition home health service (06) | LOC: WOU 13:10 | PROVIDERS: ATTEND Podiatrist Foot & Ankle Surgery | DX: I87.311 Chronic venous hypertension (idiopathic) with ulcer of right lower extremity (principal); L97.812 Non-pressure chronic ulcer of other part of right lower leg with fat layer exposed; I87.322 Chronic venous hypertension (idiopathic) with inflammation of left lower extremity; L03.115 Cellulitis of right lower limb; I89.0 Lymphedema, not elsewhere classified; L60.0 Ingrowing nail; L84 Corns and callosities; L60.1 Onycholysis; Z79.01 Long term (current) use of anticoagulants | CPT/HCPCS: 29580; A6454 ==

== ENCOUNTER 2023-06-24 13:00 | Outpatient (CLI) | payer MEDICARE, OTHER | END 2023-06-24 23:59 | disposition home health service (06) | LOC: WOU 13:00 | PROVIDERS: ATTEND Podiatrist Foot & Ankle Surgery | DX: I89.0 Lymphedema, not elsewhere classified (principal); L60.0 Ingrowing nail; L60.1 Onycholysis; B35.1 Tinea unguium; I87.2 Venous insufficiency (chronic) (peripheral); Z79.01 Long term (current) use of anticoagulants; L03.115 Cellulitis of right lower limb; I10 Essential (primary) hypertension; Z85.72 Personal history of non-Hodgkin lymphomas; Z86.73 Personal history of transient ischemic attack (TIA), and cerebral infarction without residual deficits; Z95.0 Presence of cardiac pacemaker; I49.9 Cardiac arrhythmia, unspecified; Z83.3 Family history of diabetes mellitus; Z82.3 Family history of stroke; Z82.49 Family history of ischemic heart disease and other diseases of the circulatory system; Z88.1 Allergy status to other antibiotic agents | CPT/HCPCS: 29580; 11721; A6454; 11042 ==

== ENCOUNTER 2024-03-03 19:05 | Inpatient (IN) | payer MEDICARE, OTHER ==
[~2024-03-03] VITALS: Ht 167.6 cm; Wt 112.9 kg
[2024-03-03 20:12] LABS: BASOPHILS % (AUTO) 0.2 % (0.0-2.0); HEMATOCRIT 43 % (39-51); HEMOGLOBIN 14.3 g/dL (13.5-17.5); LYMPHOCYTES # (AUTO) 0.5 K/uL (0.8-4.8); LYMPHOCYTES % (AUTO) 3.1 % (20.0-44.0); MEAN CORPUSCULAR HEMOGLOBIN 30 PG (26.0-33.0); MEAN CORPUSCULAR HGB CONC 33 g/dl (31.0-36.0); MEAN CORPUSCULAR VOLUME 88 fL (80-96); MONOCYTES # (AUTO) 0.7 K/uL (0.1-1.30); MONOCYTES % (AUTO) 4.2 % (2.0-12.0); NEUTROPHILS # (AUTO) 14.6 K/uL (1.8-8.9); NEUTROPHILS % (AUTO) 92.5 % (43.0-81.0); PLATELET COUNT (AUTO) 123 K/uL (150-450); RED BLOOD CELL COUNT(AUTO) 4.86 MIL/uL (4.5-6.0); RED CELL DISTRIBUTION WIDTH 14.6 % (11.5-15.0); WHITE BLOOD COUNT (AUTO) 15.7 K/uL (4.3-11.0)
[2024-03-03] MEDS: APIXABAN 5 MG TABLET PO SCH (20:22)
[2024-03-03 20:37] LABS: ALANINE AMINOTRANSFERASE 27 U/L (12-78); ALBUMIN 3.2 g/dL (3.4-5.0); ALKALINE PHOSPHATASE 97 U/L (46-116); ASPARTATE AMINOTRANSFERASE 19 U/L (15-37); BILIRUBIN,DIRECT 0.5 mg/dL (0.0-0.2); BILIRUBIN,TOTAL 1.7 mg/dL (0.2-1.0); CARBON DIOXIDE 30 mmol/L (21-32); CHLORIDE 102 mmol/L (98-107); CREATININE 1.4 mg/dL (0.6-1.3); GLUCOSE 175 mg/dL (74-106); NT-PRO BNP 253 pg/mL (0-125); POTASSIUM 3.3 mmol/L (3.5-5.1); SODIUM SERUM 139 mmol/L (136-145); TOTAL PROTEIN, SERUM 6.1 g/dL (6.4-8.2); UREA NITROGEN, BLOOD 18 mg/dL (7-18)
[2024-03-03] MEDS ORDERED: POTASSIUM CHLORIDE 20 MEQ TAB.PRT.SR PO ONE (21:00)
[2024-03-03] MEDS ORDERED: FUROSEMIDE 40 MG/4 ML VIAL IV SCH (21:00)
[2024-03-03] MEDS ORDERED: ONDANSETRON HCL/PF 4 MG/2 ML VIAL IVP PRN (21:30)
[2024-03-03] MEDS ORDERED: MAG HYDROX/AL HYDROX/SIMETH 30 ML UDC PO PRN (21:30)
[2024-03-03] MEDS ORDERED: HYDROCODONE/APAP 5/325MG TABLET PO PRN (21:30)
[2024-03-03] MEDS ORDERED: MORPHINE SULFATE INJ 2 MG/ML DISP.SYRIN IV PRN (21:30)
[2024-03-03] MEDS ORDERED: HOME MED MISCELLANEOUS XX SCH (21:30)
[2024-03-03] MEDS: ATORVASTATIN 10 MG TABLET PO SCH (23:24)
[2024-03-03] MEDS: DOXAZOSIN MESYLATE (1 MG) 1 MG TABLET PO SCH (23:26)
[2024-03-04] VITALS: BP 127/61; TEMP 100.6; O2SAT 99
[2024-03-04] MEDS: ACETAMINOPHEN 325 MG TABLET PO PRN (00:19)
[2024-03-04 04:39] VITALS: BP 139/72; TEMP 99.9; O2SAT 94
[2024-03-04 07:53] LABS: BASOPHILS % (AUTO) 0.1 % (0.0-2.0); EOSINOPHILS % (AUTO) 0.2 % (0.0-6.0); HEMATOCRIT 41 % (39-51); HEMOGLOBIN 13.8 g/dL (13.5-17.5); LYMPHOCYTES # (AUTO) 0.7 K/uL (0.8-4.8); LYMPHOCYTES % (AUTO) 4.9 % (20.0-44.0); MEAN CORPUSCULAR HEMOGLOBIN 30 PG (26.0-33.0); MEAN CORPUSCULAR HGB CONC 34 g/dl (31.0-36.0); MEAN CORPUSCULAR VOLUME 89 fL (80-96); MONOCYTES # (AUTO) 0.5 K/uL (0.1-1.30); MONOCYTES % (AUTO) 3.5 % (2.0-12.0); NEUTROPHILS # (AUTO) 12.7 K/uL (1.8-8.9); NEUTROPHILS % (AUTO) 91.3 % (43.0-81.0); PLATELET COUNT (AUTO) 117 K/uL (150-450); RED BLOOD CELL COUNT(AUTO) 4.59 MIL/uL (4.5-6.0); RED CELL DISTRIBUTION WIDTH 14.6 % (11.5-15.0); WHITE BLOOD COUNT (AUTO) 13.8 K/uL (4.3-11.0)
[2024-03-04 07:54] LABS: CALCIUM, SERUM 8.8 mg/dL (8.5-10.1); CREATININE 1.2 mg/dL (0.6-1.3); PHOSPHORUS 3.1 mg/dL (2.5-4.9); POTASSIUM 3.4 mmol/L (3.5-5.1)
[2024-03-04 08:16] LABS: THYROID STIMULATING HORMONE 2.006 uIU/mL (0.358-3.74)
[2024-03-04] MEDS ORDERED: ALPR0.255 PO (08:28)
[2024-03-04] MEDS ORDERED: APIX5TAB PO (08:28)
[2024-03-04] MEDS ORDERED: POTA10CA43 PO (08:28)
[2024-03-04 08:35] VITALS: BP 132/66; TEMP 99.9; O2SAT 95
[2024-03-04] MEDS ORDERED: POTASSIUM CHLORIDE 10 MEQ TABLET.SA PO SCH (09:00)
[2024-03-04] MEDS ORDERED: FUROSEMIDE 40 MG/4 ML VIAL IV SCH (09:00)
[2024-03-04] MEDS ORDERED: POTASSIUM CHLORIDE 20 MEQ TAB.PRT.SR PO SCH (09:30)
[2024-03-04] MEDS: FUROSEMIDE 100 MG/10 ML VIAL IV SCH (10:38)
[2024-03-04] MEDS: ASPIRIN 81 MG TAB.CHEW PO SCH (10:38)
[2024-03-04] MEDS: PANTOPRAZOLE 40 MG TABLET.DR PO SCH (10:38)
[2024-03-04] MEDS: DILTIAZEM HCL CD 240 MG PO SCH (10:39)
[2024-03-04] MEDS: ALLOPURINOL 100 MG TABLET PO SCH (10:41)
[2024-03-04] MEDS: Z GUARD REMEDY 4 OZ OINT TP PRN (10:41)
[2024-03-04] MEDS: POTASSIUM CHLORIDE 20 MEQ POWDER PACKET GT SCH (11:20)
[2024-03-04 12:00] VITALS: BP 133/77; TEMP 99.5; O2SAT 94
[2024-03-04] MEDS: CEFTRIAXONE 1 G in IV D5W 50 ML IV SCH (13:22)
[2024-03-04] MEDS: AZITHROMYCIN 500 MG in IV D5W 250 ML IV SCH (13:23)
[2024-03-04 16:07] VITALS: BP 125/65; TEMP 99.3; O2SAT 94
[2024-03-04 20:00] VITALS: BP 157/75; TEMP 99.3; O2SAT 97
[2024-03-05] VITALS: BP 145/73; TEMP 98.4; O2SAT 93
[2024-03-05 04:00] VITALS: BP 148/72; TEMP 98.5; O2SAT 94
[2024-03-05 08:00] VITALS: BP 143/71; TEMP 99.5; O2SAT 94
[2024-03-05 08:07] LABS: ALBUMIN 2.6 g/dL (3.4-5.0); BILIRUBIN,TOTAL 1.3 mg/dL (0.2-1.0); CREATININE 1.3 mg/dL (0.6-1.3); PHOSPHORUS 2.9 mg/dL (2.5-4.9); TOTAL PROTEIN, SERUM 5.9 g/dL (6.4-8.2)
[2024-03-05 08:09] LABS: BASOPHILS % (AUTO) 0.2 % (0.0-2.0); EOSINOPHILS # (AUTO) 0.1 K/uL (0.0-0.7); EOSINOPHILS % (AUTO) 0.4 % (0.0-6.0); HEMATOCRIT 39 % (39-51); HEMOGLOBIN 12.9 g/dL (13.5-17.5); LYMPHOCYTES # (AUTO) 0.7 K/uL (0.8-4.8); LYMPHOCYTES % (AUTO) 5.8 % (20.0-44.0); MEAN CORPUSCULAR HEMOGLOBIN 30 PG (26.0-33.0); MEAN CORPUSCULAR HGB CONC 34 g/dl (31.0-36.0); MEAN CORPUSCULAR VOLUME 90 fL (80-96); MONOCYTES # (AUTO) 0.7 K/uL (0.1-1.30); MONOCYTES % (AUTO) 5.7 % (2.0-12.0); NEUTROPHILS # (AUTO) 11.3 K/uL (1.8-8.9); NEUTROPHILS % (AUTO) 87.9 % (43.0-81.0); PLATELET COUNT (AUTO) 118 K/uL (150-450); RED CELL DISTRIBUTION WIDTH 14.4 % (11.5-15.0); WHITE BLOOD COUNT (AUTO) 12.9 K/uL (4.3-11.0)
[2024-03-05] MEDS: POTASSIUM CHLORIDE 20 MEQ TAB.PRT.SR PO SCH (09:29)
[2024-03-05] MEDS: Magnesium 1GM/D5W 100ML PREMIX 100 ML IV SCH (09:31)
[2024-03-05] MEDS: POTASSIUM CHLORIDE 20 MEQ POWDER PACKET PO SCH (10:28)
[2024-03-05] MEDS: BUMETANIDE INJ 8 MG in IV NS 0.9% 48 ML IV ONE (15:23)
[2024-03-05 16:00] VITALS: BP 130/77; TEMP 98; O2SAT 96
[2024-03-05 20:00] VITALS: BP 129/79; TEMP 98.4; O2SAT 97
[2024-03-06 07:00] VITALS: BP 158/69; TEMP 98.3; O2SAT 94
[2024-03-06 07:58] LABS: BASOPHILS % (AUTO) 0.3 % (0.0-2.0); EOSINOPHILS # (AUTO) 0.2 K/uL (0.0-0.7); EOSINOPHILS % (AUTO) 2.2 % (0.0-6.0); HEMATOCRIT 40 % (39-51); HEMOGLOBIN 13.5 g/dL (13.5-17.5); LYMPHOCYTES # (AUTO) 0.6 K/uL (0.8-4.8); MEAN CORPUSCULAR HEMOGLOBIN 30 PG (26.0-33.0); MEAN CORPUSCULAR HGB CONC 34 g/dl (31.0-36.0); MEAN CORPUSCULAR VOLUME 89 fL (80-96); MONOCYTES # (AUTO) 0.6 K/uL (0.1-1.30); MONOCYTES % (AUTO) 7.9 % (2.0-12.0); NEUTROPHILS # (AUTO) 6.5 K/uL (1.8-8.9); NEUTROPHILS % (AUTO) 81.6 % (43.0-81.0); PLATELET COUNT (AUTO) 127 K/uL (150-450); RED BLOOD CELL COUNT(AUTO) 4.46 MIL/uL (4.5-6.0); RED CELL DISTRIBUTION WIDTH 14.2 % (11.5-15.0)
[2024-03-06 08:24] LABS: CALCIUM, SERUM 8.2 mg/dL (8.5-10.1); CREATININE 1.3 mg/dL (0.6-1.3); PHOSPHORUS 3.3 mg/dL (2.5-4.9)
[2024-03-06] MEDS: PREGABALIN 25 MG CAPSULE PO SCH (11:08)
[2024-03-06] MEDS: DOXYCYCLINE 100 MG in IV D5W 100 ML IV SCH (12:08)
[2024-03-06] MEDS: POTASSIUM CHLORIDE 20 MEQ TAB.PRT.SR PO SCH (12:40)
[2024-03-06 16:00] VITALS: BP 135/71; TEMP 99.7; O2SAT 92
[2024-03-06] MEDS: MAGNESIUM HYDROXIDE 30 ML UDC PO PRN (17:52)
[2024-03-06 20:00] VITALS: BP 139/77; TEMP 97.8; O2SAT 97
[2024-03-07 07:00] VITALS: BP 121/85; TEMP 98.2; O2SAT 90
[2024-03-07 07:04] LABS: BASOPHILS % (AUTO) 0.5 % (0.0-2.0); EOSINOPHILS # (AUTO) 0.3 K/uL (0.0-0.7); EOSINOPHILS % (AUTO) 4.1 % (0.0-6.0); HEMATOCRIT 42 % (39-51); HEMOGLOBIN 13.8 g/dL (13.5-17.5); LYMPHOCYTES # (AUTO) 0.6 K/uL (0.8-4.8); LYMPHOCYTES % (AUTO) 9.5 % (20.0-44.0); MEAN CORPUSCULAR HEMOGLOBIN 30 PG (26.0-33.0); MEAN CORPUSCULAR HGB CONC 33 g/dl (31.0-36.0); MEAN CORPUSCULAR VOLUME 90 fL (80-96); MONOCYTES # (AUTO) 0.7 K/uL (0.1-1.30); MONOCYTES % (AUTO) 10.7 % (2.0-12.0); NEUTROPHILS # (AUTO) 4.7 K/uL (1.8-8.9); NEUTROPHILS % (AUTO) 75.2 % (43.0-81.0); PLATELET COUNT (AUTO) 151 K/uL (150-450); RED BLOOD CELL COUNT(AUTO) 4.61 MIL/uL (4.5-6.0); RED CELL DISTRIBUTION WIDTH 14.4 % (11.5-15.0); WHITE BLOOD COUNT (AUTO) 6.3 K/uL (4.3-11.0)
[2024-03-07 07:43] LABS: CALCIUM, SERUM 8.3 mg/dL (8.5-10.1); CREATININE 1.2 mg/dL (0.6-1.3); MAGNESIUM 2.3 mg/dL (1.8-2.4); PHOSPHORUS 3.3 mg/dL (2.5-4.9); POTASSIUM 3.4 mmol/L (3.5-5.1)
[2024-03-07] MEDS: FUROSEMIDE 40 MG TABLET PO SCH (08:40)
[2024-03-07] MEDS: POTASSIUM CHLORIDE 20 MEQ TAB.PRT.SR PO SCH (08:41)
[2024-03-07 16:00] VITALS: BP 123/76; TEMP 97.9; O2SAT 98
[2024-03-08] MEDS ORDERED: POTASSIUM CHLORIDE 20 MEQ TAB.PRT.SR PO SCH (09:00)
== END 2024-03-07 19:58 | DRG 291 ==
LOC: ER 19:07 → TELE 20:48 → MED 03-05 16:15
PROVIDERS: ADMIT Nurse Practitioner Acute Care; ATTEND Nurse Practitioner Family
DX: I13.0 Hypertensive heart and chronic kidney disease with heart failure and stage 1 through stage 4 chronic kidney disease, or unspecified chronic kidney disease (principal); I50.33 Acute on chronic diastolic (congestive) heart failure; J15.9 Unspecified bacterial pneumonia; N17.0 Acute kidney failure with tubular necrosis; I48.20 Chronic atrial fibrillation, unspecified; D68.59 Other primary thrombophilia; Z68.41 Body mass index [BMI] 40.0-44.9, adult; L03.116 Cellulitis of left lower limb; E87.6 Hypokalemia; E11.22 Type 2 diabetes mellitus with diabetic chronic kidney disease; E11.65 Type 2 diabetes mellitus with hyperglycemia; Z85.72 Personal history of non-Hodgkin lymphomas; Z86.718 Personal history of other venous thrombosis and embolism; Z86.73 Personal history of transient ischemic attack (TIA), and cerebral infarction without residual deficits; Z20.822 Contact with and (suspected) exposure to COVID-19; Z95.0 Presence of cardiac pacemaker; Z79.82 Long term (current) use of aspirin; Z79.01 Long term (current) use of anticoagulants; I89.0 Lymphedema, not elsewhere classified; S81.802A Unspecified open wound, left lower leg, initial encounter; S81.801A Unspecified open wound, right lower leg, initial encounter; X58.XXXA Exposure to other specified factors, initial encounter; Y93.9 Activity, unspecified; Y92.009 Unspecified place in unspecified non-institutional (private) residence as the place of occurrence of the external cause; Y99.9 Unspecified external cause status; Z74.09 Other reduced mobility; G47.33 Obstructive sleep apnea (adult) (pediatric); J40 Bronchitis, not specified as acute or chronic; N40.0 Benign prostatic hyperplasia without lower urinary tract symptoms; N18.9 Chronic kidney disease, unspecified; E66.01 Morbid (severe) obesity due to excess calories
CPT/HCPCS: 36415; 71045-TC; 71250-TC; 80048-TC; 80053-TC; 80061-TC; 80076-TC; 83735-TC; 83880; 84100-TC; 84443-TC; 84484-TC; 85025-TC; 93307-TC; 93970-TC; 93971-TC; 97110-TC; 97112-TC; 97116-TC; 97164; 97530-TC; A4223; G0378; J0456; J0696; J1940; J3475; J3490; J7030; J7050; J7060

== ENCOUNTER 2024-06-22 11:27 | Outpatient (CLI) | payer MEDICARE, OTHER ==
[~2024-06-22 11:27] MED LIST changes: +ALPR0.255 PO; +APIX5TAB PO; -ASPI-1169 PO; +POTA10CA43 PO; -POTA8CAP20 PO; -SIMV10TA98 PO; -WARF-58 PO
== END 2024-06-22 23:59 | disposition home health service (06) ==
LOC: WOU 11:27
PROVIDERS: ATTEND Podiatrist Foot & Ankle Surgery
DX: I89.0 Lymphedema, not elsewhere classified (principal); I87.323 Chronic venous hypertension (idiopathic) with inflammation of bilateral lower extremity; L84 Corns and callosities; M79.671 Pain in right foot; L60.2 Onychogryphosis; Z79.01 Long term (current) use of anticoagulants
CPT/HCPCS: 29580; A6454

== ENCOUNTER 2024-07-06 11:19 | Outpatient (CLI) | payer MEDICARE, OTHER | END 2024-07-06 23:59 | disposition home health service (06) | LOC: WOU 11:19 | PROVIDERS: ATTEND Podiatrist Foot & Ankle Surgery | DX: I89.0 Lymphedema, not elsewhere classified (principal); I87.323 Chronic venous hypertension (idiopathic) with inflammation of bilateral lower extremity; B35.1 Tinea unguium; L84 Corns and callosities; M79.671 Pain in right foot; L60.2 Onychogryphosis; L60.0 Ingrowing nail; Z79.01 Long term (current) use of anticoagulants | CPT/HCPCS: 29580; A6454 ==

== ENCOUNTER 2024-11-13 21:00 | Inpatient (IN) | payer MEDICARE, OTHER ==
[~2024-11-13] VITALS: Ht 170.2 cm; Wt 88.6 kg
[2024-11-13] MEDS ORDERED: PIPERACI/TAZO 3.375GM/D5W 50ML PB IV ONE (23:38)
[2024-11-13] MEDS ORDERED: VANCOMYCIN 1 GM /D5W 250 ML PB IV ONE (23:38)
[2024-11-13 23:39] LABS: BASOPHILS % (AUTO) 0.3 % (0.0-2.0); EOSINOPHILS # (AUTO) 0.1 K/uL (0.0-0.7); EOSINOPHILS % (AUTO) 1.4 % (0.0-6.0); HEMATOCRIT 39 % (39-51); HEMOGLOBIN 13.3 g/dL (13.5-17.5); LYMPHOCYTES # (AUTO) 0.5 K/uL (0.8-4.8); LYMPHOCYTES % (AUTO) 6.1 % (20.0-44.0); MEAN CORPUSCULAR HEMOGLOBIN 30 PG (26.0-33.0); MEAN CORPUSCULAR HGB CONC 35 g/dl (31.0-36.0); MEAN CORPUSCULAR VOLUME 87 fL (80-96); MONOCYTES # (AUTO) 0.6 K/uL (0.1-1.30); MONOCYTES % (AUTO) 7.3 % (2.0-12.0); NEUTROPHILS # (AUTO) 7.3 K/uL (1.8-8.9); NEUTROPHILS % (AUTO) 84.9 % (43.0-81.0); PLATELET COUNT (AUTO) 155 K/uL (150-450); RED CELL DISTRIBUTION WIDTH 14.8 % (11.5-15.0); WHITE BLOOD COUNT (AUTO) 8.6 K/uL (4.3-11.0)
[2024-11-13 23:50] LABS: CALCIUM, SERUM 8.9 mg/dL (8.5-10.1); CREATININE 1.2 mg/dL (0.6-1.3); POTASSIUM 3.6 mmol/L (3.5-5.1)
[2024-11-13 23:54] LABS: ALBUMIN 2.9 g/dL (3.4-5.0); BILIRUBIN,DIRECT 0.3 mg/dL (0.0-0.2); BILIRUBIN,TOTAL 0.9 mg/dL (0.2-1.0); TOTAL PROTEIN, SERUM 6.2 g/dL (6.4-8.2)
[2024-11-13 23:57] LABS: LACTIC ACID 1.2 mmol/L (0.4-2.0)
[2024-11-14] MEDS: VANCOMYCIN 1 GM in IV D5W 250 ML IV SCH (00:12)
[2024-11-14] MEDS: PIPERACILLIN /TAZOBACTAM 3.375 G in IV D5W 50 ML IV ONE (00:13)
[2024-11-14 00:15] LABS: INR 1.17 (0.91-1.10); PARTIAL THROMBOPLASTIN TIME 31.7 SEC (24.3-34.3); PROTHROMBIN TIME 12.3 SECS (9.2-11.1)
[2024-11-14] MEDS ORDERED: ALPRAZOLAM 0.25 MG TABLET PO PRN (02:30)
[2024-11-14] MEDS ORDERED: ONDANSETRON HCL/PF 4 MG/2 ML VIAL IVP PRN (02:30)
[2024-11-14] MEDS ORDERED: Z GUARD REMEDY 4 OZ OINT TP PRN (02:30)
[2024-11-14] MEDS ORDERED: MAG HYDROX/AL HYDROX/SIMETH 30 ML UDC PO PRN (02:30)
[2024-11-14] MEDS ORDERED: ACETAMINOPHEN 325 MG TABLET PO PRN (02:30)
[2024-11-14 07:27] LABS: BASOPHILS % (AUTO) 0.6 % (0.0-2.0); EOSINOPHILS # (AUTO) 0.2 K/uL (0.0-0.7); EOSINOPHILS % (AUTO) 2.9 % (0.0-6.0); HEMATOCRIT 41 % (39-51); LYMPHOCYTES # (AUTO) 0.8 K/uL (0.8-4.8); LYMPHOCYTES % (AUTO) 10.5 % (20.0-44.0); MEAN CORPUSCULAR HEMOGLOBIN 30 PG (26.0-33.0); MEAN CORPUSCULAR HGB CONC 34 g/dl (31.0-36.0); MEAN CORPUSCULAR VOLUME 88 fL (80-96); MONOCYTES # (AUTO) 0.6 K/uL (0.1-1.30); MONOCYTES % (AUTO) 8.2 % (2.0-12.0); NEUTROPHILS % (AUTO) 77.8 % (43.0-81.0); PLATELET COUNT (AUTO) 180 K/uL (150-450); RED BLOOD CELL COUNT(AUTO) 4.69 MIL/uL (4.5-6.0); RED CELL DISTRIBUTION WIDTH 14.6 % (11.5-15.0); WHITE BLOOD COUNT (AUTO) 7.7 K/uL (4.3-11.0)
[2024-11-14 07:49] LABS: CALCIUM, SERUM 8.8 mg/dL (8.5-10.1); CREATININE 1.1 mg/dL (0.6-1.3); PHOSPHORUS 3.1 mg/dL (2.5-4.9); POTASSIUM 3.7 mmol/L (3.5-5.1)
[2024-11-14] MEDS ORDERED: PIPERACILLIN /TAZOBACTAM 3.375 G in IV D5W 50 ML IV SCH (08:00)
[2024-11-14] MEDS ORDERED: ALLOPURINOL 100 MG TABLET ONE (09:32)
[2024-11-14] MEDS ORDERED: PANTOPRAZOLE 40 MG VIAL ONE (09:32)
[2024-11-14] MEDS ORDERED: APIXABAN 5 MG TABLET ONE (09:33)
[2024-11-14] MEDS ORDERED: PIPERACI/TAZO 3.375GM/D5W 50ML PB IV ONE (09:33)
[2024-11-14] MEDS ORDERED: POTASSIUM CHLORIDE 10 MEQ TABLET.SA ONE (09:34)
[2024-11-14] MEDS: PIPERACILLIN /TAZOBACTAM 3.375 G in IV D5W 50 ML IV SCH (09:50)
[2024-11-14] MEDS: PANTOPRAZOLE 40 MG VIAL IV SCH (09:50)
[2024-11-14] MEDS: APIXABAN 5 MG TABLET PO SCH (09:52)
[2024-11-14] MEDS: ALLOPURINOL 100 MG TABLET PO SCH (09:53)
[2024-11-14] MEDS: FUROSEMIDE 40 MG TABLET PO SCH (09:53)
[2024-11-14] MEDS: POTASSIUM CHLORIDE 10 MEQ TABLET.SA PO SCH (09:53)
[2024-11-14] MEDS: VANCOMYCIN 1 GM in IV D5W 250ml IV ONE (11:20)
[2024-11-14 14:00] VITALS: BP 124/68; TEMP 98.8; O2SAT 97
[2024-11-14 16:00] VITALS: BP 134/74; TEMP 97.7; O2SAT 97
[2024-11-14] MEDS: DOXAZOSIN MESYLATE (1 MG) 1 MG TABLET PO SCH (17:30)
[2024-11-14] MEDS ORDERED: DOXAZOSIN MESYLATE 2 MG PO SCH (18:00)
[2024-11-14 20:00] VITALS: BP 148/73; TEMP 98.4; O2SAT 95
[2024-11-14] MEDS: VANCOMYCIN 750 MG in IV D5W 250 ML IV SCH (20:01)
[2024-11-15 06:58] LABS: CALCIUM, SERUM 8.6 mg/dL (8.5-10.1); CREATININE 1.2 mg/dL (0.6-1.3); POTASSIUM 3.6 mmol/L (3.5-5.1)
[2024-11-15 08:03] VITALS: BP 141/78; TEMP 98.2; O2SAT 98
[2024-11-15] MEDS: DILTIAZEM HCL CD 240 MG PO SCH (08:33)
[2024-11-15] MEDS ORDERED: POTASSIUM CHLORIDE 20 MEQ POWDER PACKET PO SCH (10:00)
[2024-11-15 16:14] VITALS: BP 151/78; TEMP 98.2; O2SAT 95
[2024-11-15] MEDS: CHLORHEXIDINE GLUCONATE 4% 118 ML BOTTLE TP SCH (19:20)
[2024-11-15 20:24] VITALS: BP 129/72; TEMP 98.4; O2SAT 97
[2024-11-16 07:30] VITALS: BP 146/78; TEMP 98.8; O2SAT 96
[2024-11-16 08:00] LABS: BASOPHILS % (AUTO) 0.5 % (0.0-2.0); EOSINOPHILS # (AUTO) 0.3 K/uL (0.0-0.7); EOSINOPHILS % (AUTO) 4.9 % (0.0-6.0); HEMATOCRIT 38 % (39-51); HEMOGLOBIN 12.9 g/dL (13.5-17.5); LYMPHOCYTES # (AUTO) 0.6 K/uL (0.8-4.8); LYMPHOCYTES % (AUTO) 9.1 % (20.0-44.0); MEAN CORPUSCULAR HEMOGLOBIN 30 PG (26.0-33.0); MEAN CORPUSCULAR HGB CONC 34 g/dl (31.0-36.0); MEAN CORPUSCULAR VOLUME 88 fL (80-96); MONOCYTES # (AUTO) 0.4 K/uL (0.1-1.30); MONOCYTES % (AUTO) 7.2 % (2.0-12.0); NEUTROPHILS # (AUTO) 4.9 K/uL (1.8-8.9); NEUTROPHILS % (AUTO) 78.3 % (43.0-81.0); PLATELET COUNT (AUTO) 152 K/uL (150-450); RED BLOOD CELL COUNT(AUTO) 4.34 MIL/uL (4.5-6.0); RED CELL DISTRIBUTION WIDTH 14.8 % (11.5-15.0); WHITE BLOOD COUNT (AUTO) 6.2 K/uL (4.3-11.0)
[2024-11-16 08:18] LABS: CALCIUM, SERUM 8.4 mg/dL (8.5-10.1); CREATININE 1.1 mg/dL (0.6-1.3); MAGNESIUM 1.9 mg/dL (1.8-2.4); PHOSPHORUS 3.5 mg/dL (2.5-4.9); POTASSIUM 3.3 mmol/L (3.5-5.1)
[2024-11-16] MEDS: PANTOPRAZOLE 40 MG/PACK PACK PO SCH (09:31)
[2024-11-16] MEDS ORDERED: POTASSIUM CHLORIDE 20 MEQ TAB.PRT.SR PO SCH (11:00)
[2024-11-16] MEDS: POTASSIUM CHLORIDE 20 MEQ POWDER PACKET PO ONE (12:45)
[2024-11-16 16:00] VITALS: BP 119/69; TEMP 99; O2SAT 97
[2024-11-16] MEDS ORDERED: SILVER SULFADIAZINE 50 GM JAR TP SCH (17:00)
[2024-11-16 20:00] VITALS: BP 123/63; TEMP 98.6; O2SAT 95
[2024-11-16] MEDS ORDERED: MEROPENEM 500MG/NS 50 ML PB IV ONE (23:05)
[2024-11-16] MEDS: MEROPENEM 500 MG in IV NS 0.9% 50 ML IV ONE (23:32)
[2024-11-17] MEDS: MAGNESIUM HYDROXIDE 30 ML UDC PO PRN (00:52)
[2024-11-17 07:00] VITALS: BP 123/59; TEMP 98.2; O2SAT 97
[2024-11-17] MEDS: MEROPENEM 1 G in IV NS 0.9% 100 ML IV SCH (07:39)
[2024-11-17 08:31] LABS: BASOPHILS % (AUTO) 0.4 % (0.0-2.0); EOSINOPHILS # (AUTO) 0.3 K/uL (0.0-0.7); EOSINOPHILS % (AUTO) 5.3 % (0.0-6.0); HEMATOCRIT 39 % (39-51); HEMOGLOBIN 13.3 g/dL (13.5-17.5); LYMPHOCYTES # (AUTO) 0.6 K/uL (0.8-4.8); LYMPHOCYTES % (AUTO) 10.8 % (20.0-44.0); MEAN CORPUSCULAR HEMOGLOBIN 30 PG (26.0-33.0); MEAN CORPUSCULAR HGB CONC 34 g/dl (31.0-36.0); MEAN CORPUSCULAR VOLUME 88 fL (80-96); MONOCYTES # (AUTO) 0.4 K/uL (0.1-1.30); MONOCYTES % (AUTO) 7.9 % (2.0-12.0); NEUTROPHILS # (AUTO) 4.3 K/uL (1.8-8.9); NEUTROPHILS % (AUTO) 75.6 % (43.0-81.0); PLATELET COUNT (AUTO) 154 K/uL (150-450); RED BLOOD CELL COUNT(AUTO) 4.44 MIL/uL (4.5-6.0); RED CELL DISTRIBUTION WIDTH 14.5 % (11.5-15.0); WHITE BLOOD COUNT (AUTO) 5.7 K/uL (4.3-11.0)
[2024-11-17 08:57] LABS: CALCIUM, SERUM 8.7 mg/dL (8.5-10.1); CREATININE 1.2 mg/dL (0.6-1.3); PHOSPHORUS 3.4 mg/dL (2.5-4.9); POTASSIUM 3.2 mmol/L (3.5-5.1)
[2024-11-17] MEDS: SILVER SULFADIAZINE CREAM 25 GM TUBE TP SCH (09:38)
[2024-11-17] MEDS ORDERED: MERO1PIG IV (14:15)
[2024-11-17] MEDS: POTASSIUM CHLORIDE 20 MEQ POWDER PACKET PO SCH (15:57)
[2024-11-17 16:00] VITALS: BP 129/71; TEMP 97.5; O2SAT 98
[2024-11-17 17:15] VITALS: BP 129/71
== END 2024-11-17 18:45 | DRG 603 ==
LOC: ER 21:02 → TRANSITION 11-14 04:06 → TELE 11-14 12:44 → MED 11-14 22:34
PROVIDERS: ADMIT Student in an Organized Health Care Education/Training Program; ATTEND Student in an Organized Health Care Education/Training Program
DX: L03.116 Cellulitis of left lower limb (principal); D68.59 Other primary thrombophilia; E44.0 Moderate protein-calorie malnutrition; Z16.11 Resistance to penicillins; I50.32 Chronic diastolic (congestive) heart failure; I11.0 Hypertensive heart disease with heart failure; I48.91 Unspecified atrial fibrillation; L03.115 Cellulitis of right lower limb; Z79.01 Long term (current) use of anticoagulants; Z86.718 Personal history of other venous thrombosis and embolism; Z86.73 Personal history of transient ischemic attack (TIA), and cerebral infarction without residual deficits; D64.9 Anemia, unspecified; I89.0 Lymphedema, not elsewhere classified; Z79.899 Other long term (current) drug therapy; E66.01 Morbid (severe) obesity due to excess calories; I73.9 Peripheral vascular disease, unspecified; Z68.30 Body mass index [BMI] 30.0-30.9, adult; S81.802A Unspecified open wound, left lower leg, initial encounter; S81.801A Unspecified open wound, right lower leg, initial encounter; X58.XXXA Exposure to other specified factors, initial encounter; Y93.9 Activity, unspecified; Y92.009 Unspecified place in unspecified non-institutional (private) residence as the place of occurrence of the external cause
CPT/HCPCS: 36415; 80048-TC; 80076-TC; 80202-TC; 83605-TC; 83735-TC; 83880; 84100-TC; 85025-TC; 85730-TC; 87040-TC; A6253; A6403; G0378; J2185; J2405; J2470; J2543; J3370; J3371; J7030; J7050; J7060

== ENCOUNTER 2024-11-22 22:52 | Emergency (ER) | payer MEDICARE, OTHER ==
[~2024-11-22] VITALS: Ht 160 cm; Wt 108.9 kg
[~2024-11-22 22:52] MED LIST changes: +MERO1PIG IV
[2024-11-23 00:06] VITALS: BP 131/66; TEMP 101.2; O2SAT 96
[2024-11-23] MEDS ORDERED: ACETAMINOPHEN ES 500 MG TABLET ONE (00:30)
[2024-11-23] MEDS: ACETAMINOPHEN ES 500 MG TABLET PO ONE (00:31)
[2024-11-23] MEDS: IV NS 0.9% 500 ML BAG IV ONE (00:31)
[2024-11-23 00:55] LABS: BASOPHILS % (AUTO) 0.3 % (0.0-2.0); EOSINOPHILS # (AUTO) 0.1 K/uL (0.0-0.7); EOSINOPHILS % (AUTO) 0.9 % (0.0-6.0); HEMATOCRIT 37 % (39-51); HEMOGLOBIN 12.4 g/dL (13.5-17.5); LYMPHOCYTES # (AUTO) 0.4 K/uL (0.8-4.8); LYMPHOCYTES % (AUTO) 4.9 % (20.0-44.0); MEAN CORPUSCULAR HEMOGLOBIN 30 PG (26.0-33.0); MEAN CORPUSCULAR HGB CONC 34 g/dl (31.0-36.0); MEAN CORPUSCULAR VOLUME 88 fL (80-96); MONOCYTES # (AUTO) 0.6 K/uL (0.1-1.30); MONOCYTES % (AUTO) 8.3 % (2.0-12.0); NEUTROPHILS # (AUTO) 6.1 K/uL (1.8-8.9); NEUTROPHILS % (AUTO) 85.6 % (43.0-81.0); PLATELET COUNT (AUTO) 137 K/uL (150-450); RED BLOOD CELL COUNT(AUTO) 4.16 MIL/uL (4.5-6.0); RED CELL DISTRIBUTION WIDTH 14.4 % (11.5-15.0); WHITE BLOOD COUNT (AUTO) 7.1 K/uL (4.3-11.0)
[2024-11-23 01:08] LABS: ALBUMIN 3.1 g/dL (3.4-5.0); BILIRUBIN,DIRECT 0.4 mg/dL (0.0-0.2); CALCIUM, SERUM 8.6 mg/dL (8.5-10.1); CREATININE 1.3 mg/dL (0.6-1.3); POTASSIUM 3.5 mmol/L (3.5-5.1); TOTAL PROTEIN, SERUM 5.7 g/dL (6.4-8.2)
[2024-11-23 01:11] LABS: LACTIC ACID 1.1 mmol/L (0.4-2.0)
[2024-11-23 01:38] LABS: INR 1.19 (0.91-1.10); PARTIAL THROMBOPLASTIN TIME 34.7 SEC (24.3-34.3); PROTHROMBIN TIME 12.5 SECS (9.2-11.1)
[2024-11-23 02:40] LABS: APPEARANCE,URINE CLEAR (CLEAR); BILIRUBIN,URINE NEGATIVE (NEGATIVE); BLOOD, URINE NEGATIVE Ery/uL (NEGATIVE); COLOR,URINE YELLOW (YELLOW); KETONES,URINE TRACE mg/dL (NEGATIVE); LEUKOCYTE ESTERASE ,URINE NEGATIVE (NEGATIVE); NITRITE, URINE NEGATIVE (NEGATIVE); PROTEIN,URINE 1+ mg/dl (NEGATIVE); UGLUCOSE NEGATIVE (NEGATIVE); UROBILINOGEN,URINE 0.2 EU/dL (0.2)
[2024-11-23 02:56] LABS: MUCUS,URINE Many /LPF (None Seen)
[2024-11-23 02:57] LABS: ADD URINE CULTURE NO; BACTERIA,URINE Few /HPF (None Seen); SQUAMOUS EPITHELIAL CELL,UR Moderate /HPF (None Seen)
== END 2024-11-23 03:35 ==
LOC: ER 23:12
DX: A41.9 Sepsis, unspecified organism (principal); J06.9 Acute upper respiratory infection, unspecified; L03.116 Cellulitis of left lower limb; L03.115 Cellulitis of right lower limb; I11.0 Hypertensive heart disease with heart failure; I50.9 Heart failure, unspecified; R94.31 Abnormal electrocardiogram [ECG] [EKG]; Z79.01 Long term (current) use of anticoagulants; Z79.899 Other long term (current) drug therapy; Z86.718 Personal history of other venous thrombosis and embolism; Z86.73 Personal history of transient ischemic attack (TIA), and cerebral infarction without residual deficits; Z88.1 Allergy status to other antibiotic agents; Z88.8 Allergy status to other drugs, medicaments and biological substances; Z90.89 Acquired absence of other organs; Z91.041 Radiographic dye allergy status; Z20.822 Contact with and (suspected) exposure to COVID-19
CPT/HCPCS: 36415; 71045-TC; 80048-TC; 80076-TC; 81001; 83605-TC; 85025-TC; 85730-TC; 87040-TC; 87086-TC

== ENCOUNTER 2025-04-23 16:46 | Inpatient (IN) | payer MEDICARE, OTHER ==
[~2025-04-23] VITALS: Ht 170.2 cm; Wt 111.6 kg
[2025-04-23 17:28] LABS: BASOPHILS # (AUTO) 0.1 K/uL (0.0-0.2); BASOPHILS % (AUTO) 0.8 % (0.0-2.0); EOSINOPHILS # (AUTO) 0.1 K/uL (0.0-0.7); EOSINOPHILS % (AUTO) 1.2 % (0.0-6.0); HEMATOCRIT 39 % (39-51); HEMOGLOBIN 12.8 g/dL (13.5-17.5); LYMPHOCYTES # (AUTO) 0.5 K/uL (0.8-4.8); LYMPHOCYTES % (AUTO) 5.1 % (20.0-44.0); MEAN CORPUSCULAR HEMOGLOBIN 28 PG (26.0-33.0); MEAN CORPUSCULAR HGB CONC 33 g/dl (31.0-36.0); MEAN CORPUSCULAR VOLUME 85 fL (80-96); MONOCYTES # (AUTO) 0.5 K/uL (0.1-1.30); NEUTROPHILS # (AUTO) 8.3 K/uL (1.8-8.9); NEUTROPHILS % (AUTO) 87.9 % (43.0-81.0); PLATELET COUNT (AUTO) 173 K/uL (150-450); RED BLOOD CELL COUNT(AUTO) 4.62 MIL/uL (4.5-6.0); RED CELL DISTRIBUTION WIDTH 16.2 % (11.5-15.0); WHITE BLOOD COUNT (AUTO) 9.4 K/uL (4.3-11.0)
[2025-04-23 17:40] LABS: CALCIUM, SERUM 9.1 mg/dL (8.5-10.1); CARBON DIOXIDE 26 mmol/L (21-32); CHLORIDE 108 mmol/L (98-107); CREATININE 1.2 mg/dL (0.6-1.3); GLUCOSE 139 mg/dL (74-106); INR 1.13 (0.91-1.10); PARTIAL THROMBOPLASTIN TIME 28.9 SEC (24.3-34.3); PROTHROMBIN TIME 11.5 SECS (9.2-11.1); SODIUM SERUM 142 mmol/L (136-145); UREA NITROGEN, BLOOD 21 mg/dL (7-18)
[2025-04-23 17:43] LABS: ALANINE AMINOTRANSFERASE 22 U/L (12-78); ALKALINE PHOSPHATASE 85 U/L (46-116); ASPARTATE AMINOTRANSFERASE 17 U/L (15-37); BILIRUBIN,DIRECT 0.2 mg/dL (0.0-0.2); BILIRUBIN,TOTAL 0.8 mg/dL (0.2-1.0); TOTAL PROTEIN, SERUM 6.1 g/dL (6.4-8.2)
[2025-04-23] MEDS ORDERED: LACT1CAP69 PO (18:05)
[2025-04-23] MEDS ORDERED: POTA20PA3 PO (18:05)
[2025-04-23 20:00] VITALS: BP 134/75; TEMP 98.1; O2SAT 95
[2025-04-23] MEDS ORDERED: Z GUARD REMEDY 4 OZ OINT TP PRN (20:00)
[2025-04-23] MEDS ORDERED: MAG HYDROX/AL HYDROX/SIMETH 30 ML UDC PO PRN (20:00)
[2025-04-23] MEDS ORDERED: ONDANSETRON HCL/PF 4 MG/2 ML VIAL IVP PRN (20:00)
[2025-04-23] MEDS: DOXAZOSIN MESYLATE (1 MG) 1 MG TABLET PO SCH (21:47)
[2025-04-24] VITALS: BP 126/64; TEMP 98; O2SAT 99
[2025-04-24 04:00] VITALS: BP 120/62; TEMP 98; O2SAT 95
[2025-04-24 06:32] LABS: ABG BASE EXCESS 1.3 mmol/L (-2.0-3.0); ABG OXYGEN SATURATION 96.8 % (94.0-98.0); ABG PCO2 37.8 mmHg (35.0-48.0); ABG PH 7.443 (7.350-7.450); ABG PO2 91.2 mmHg (83.0-108.0); ABG TOTAL HEMOGLOBIN 12.5 G/dL (13.5-17.5); COHb 0.3 % (0.5-1.5); MetHb 0.3 % (0.0-1.5); O2Hb 96.2 % (94.0-97.0); SITE, ABG RIGHT RADIAL
[2025-04-24 06:55] LABS: BASOPHILS % (AUTO) 0.2 % (0.0-2.0); EOSINOPHILS # (AUTO) 0.2 K/uL (0.0-0.7); EOSINOPHILS % (AUTO) 3.3 % (0.0-6.0); HEMATOCRIT 36 % (39-51); LYMPHOCYTES # (AUTO) 0.6 K/uL (0.8-4.8); LYMPHOCYTES % (AUTO) 8.2 % (20.0-44.0); MEAN CORPUSCULAR HEMOGLOBIN 28 PG (26.0-33.0); MEAN CORPUSCULAR HGB CONC 33 g/dl (31.0-36.0); MEAN CORPUSCULAR VOLUME 85 fL (80-96); MONOCYTES # (AUTO) 0.6 K/uL (0.1-1.30); MONOCYTES % (AUTO) 7.6 % (2.0-12.0); NEUTROPHILS # (AUTO) 5.9 K/uL (1.8-8.9); NEUTROPHILS % (AUTO) 80.7 % (43.0-81.0); PLATELET COUNT (AUTO) 168 K/uL (150-450); RED BLOOD CELL COUNT(AUTO) 4.29 MIL/uL (4.5-6.0); RED CELL DISTRIBUTION WIDTH 16.3 % (11.5-15.0); WHITE BLOOD COUNT (AUTO) 7.3 K/uL (4.3-11.0)
[2025-04-24 07:22] LABS: THYROID STIMULATING HORMONE 3.35 uIU/mL (0.358-3.74)
[2025-04-24 07:58] LABS: CALCIUM, SERUM 8.6 mg/dL (8.5-10.1); CREATININE 0.9 mg/dL (0.6-1.3); PHOSPHORUS 3.9 mg/dL (2.5-4.9); POTASSIUM 3.9 mmol/L (3.5-5.1)
[2025-04-24 08:00] VITALS: BP 117/64; TEMP 98.2; O2SAT 95
[2025-04-24] MEDS: APIXABAN 5 MG TABLET PO SCH (08:25)
[2025-04-24] MEDS: DILTIAZEM HCL CD 240 MG PO SCH (08:26)
[2025-04-24] MEDS: FUROSEMIDE 40 MG TABLET PO SCH (08:26)
[2025-04-24] MEDS: PANTOPRAZOLE 40 MG TABLET.DR PO SCH (08:26)
[2025-04-24 12:00] VITALS: BP 116/64; TEMP 98.4; O2SAT 95
[2025-04-24 13:51] LABS: IRON, SERUM 31 ug/dl (50-175); TOTAL IRON BINDING CAPACITY 215 ug/dl (250-450)
[2025-04-24 16:00] VITALS: BP 128/70; TEMP 97.7; O2SAT 98
[2025-04-24 20:00] VITALS: BP 116/76; TEMP 97.3; O2SAT 97
[2025-04-24 20:31] LABS: OCCULT BLOOD STOOL NEGATIVE (NEGATIVE)
[2025-04-25] VITALS: BP 124/78; TEMP 97.5; O2SAT 97
[2025-04-25 04:00] VITALS: BP 126/69; TEMP 98; O2SAT 95
[2025-04-25 06:46] LABS: BASOPHILS % (AUTO) 0.5 % (0.0-2.0); EOSINOPHILS # (AUTO) 0.3 K/uL (0.0-0.7); EOSINOPHILS % (AUTO) 3.9 % (0.0-6.0); HEMATOCRIT 38 % (39-51); HEMOGLOBIN 12.4 g/dL (13.5-17.5); LYMPHOCYTES # (AUTO) 0.6 K/uL (0.8-4.8); LYMPHOCYTES % (AUTO) 7.9 % (20.0-44.0); MEAN CORPUSCULAR HEMOGLOBIN 28 PG (26.0-33.0); MEAN CORPUSCULAR HGB CONC 33 g/dl (31.0-36.0); MEAN CORPUSCULAR VOLUME 85 fL (80-96); MONOCYTES # (AUTO) 0.5 K/uL (0.1-1.30); MONOCYTES % (AUTO) 7.3 % (2.0-12.0); NEUTROPHILS # (AUTO) 5.9 K/uL (1.8-8.9); NEUTROPHILS % (AUTO) 80.4 % (43.0-81.0); PLATELET COUNT (AUTO) 173 K/uL (150-450); RED BLOOD CELL COUNT(AUTO) 4.46 MIL/uL (4.5-6.0); RED CELL DISTRIBUTION WIDTH 16.2 % (11.5-15.0); WHITE BLOOD COUNT (AUTO) 7.3 K/uL (4.3-11.0)
[2025-04-25 07:33] LABS: ALBUMIN 2.7 g/dL (3.4-5.0); BILIRUBIN,TOTAL 0.8 mg/dL (0.2-1.0); CALCIUM, SERUM 8.5 mg/dL (8.5-10.1); CREATININE 0.9 mg/dL (0.6-1.3); MAGNESIUM 1.8 mg/dL (1.8-2.4); PHOSPHORUS 3.2 mg/dL (2.5-4.9); POTASSIUM 3.3 mmol/L (3.5-5.1); TOTAL PROTEIN, SERUM 5.4 g/dL (6.4-8.2)
[2025-04-25 08:00] VITALS: BP 143/77; TEMP 98.2; O2SAT 97
[2025-04-25] MEDS: POTASSIUM CHLORIDE 20 MEQ TAB.PRT.SR PO SCH (10:46)
[2025-04-25 12:00] VITALS: BP 143/77; TEMP 98.2; O2SAT 97
[2025-04-25 16:00] VITALS: BP 144/74; TEMP 98.2; O2SAT 92
[2025-04-25] MEDS: CYANOCOBALAMIN 1,000 MCG/ML VIAL IM SCH (17:18)
[2025-04-25 17:45] LABS: CHOLESTEROL 109 mg/dL (<200); HDL CHOLESTEROL 46 mg/dL (40-60); LDL 54 mg/dL (0-99); TRIGLYCERIDES 94 mg/dL (30-150)
[2025-04-25 20:00] VITALS: BP 125/69; TEMP 98.1; O2SAT 96
[2025-04-26] MEDS: MAGNESIUM HYDROXIDE 30 ML UDC PO PRN (01:33)
[2025-04-26 04:00] VITALS: BP 144/77; TEMP 97.7; O2SAT 95
[2025-04-26 07:05] LABS: CALCIUM, SERUM 8.7 mg/dL (8.5-10.1); POTASSIUM 3.3 mmol/L (3.5-5.1)
[2025-04-26 08:00] VITALS: BP 132/73; TEMP 99.3; O2SAT 94
[2025-04-26] MEDS: ACETAMINOPHEN 325 MG TABLET PO PRN (09:24)
[2025-04-26] MEDS: FOLIC ACID 1 MG TABLET PO SCH (09:26)
[2025-04-26] MEDS: POTASSIUM CHLORIDE 20 MEQ TAB.PRT.SR PO SCH (09:37)
[2025-04-26 12:00] VITALS: BP 132/73; TEMP 98.8; O2SAT 94
[2025-04-26] MEDS: LIDOCAINE 5% (PATCH) 1 EA PATCH TP SCH (13:54)
[2025-04-26 16:00] VITALS: BP 128/76; TEMP 97.9; O2SAT 96
[2025-04-26 16:56] VITALS: BP 128/76; TEMP 97.9; O2SAT 96
[2025-04-26 20:00] VITALS: BP 133/71; TEMP 98.2; O2SAT 96
[2025-04-27 04:00] VITALS: BP 139/73; TEMP 98.2; O2SAT 96
[2025-04-27 08:00] VITALS: BP 126/73; TEMP 97.3; O2SAT 96
[2025-04-27 08:05] LABS: CALCIUM, SERUM 8.8 mg/dL (8.5-10.1); CREATININE 0.9 mg/dL (0.6-1.3); POTASSIUM 3.6 mmol/L (3.5-5.1)
[2025-04-27 08:47] VITALS: BP 130/70
[2025-04-28 13:07] LABS: VITAMIN B1 THIAMINE,WB 90.2 nmol/L (66.5-200.0)
== END 2025-04-27 15:47 | DRG 74 ==
LOC: ER 16:56 → TELE1 18:32 → MEDSG1 04-25 08:28
DX: G90.89 Other disorders of autonomic nervous system (principal); I50.32 Chronic diastolic (congestive) heart failure; I48.20 Chronic atrial fibrillation, unspecified; G47.419 Narcolepsy without cataplexy; Z95.0 Presence of cardiac pacemaker; Z86.73 Personal history of transient ischemic attack (TIA), and cerebral infarction without residual deficits; I11.0 Hypertensive heart disease with heart failure; E11.9 Type 2 diabetes mellitus without complications; Z86.718 Personal history of other venous thrombosis and embolism; Z79.01 Long term (current) use of anticoagulants; R19.5 Other fecal abnormalities; Z68.38 Body mass index [BMI] 38.0-38.9, adult; G47.33 Obstructive sleep apnea (adult) (pediatric); I87.2 Venous insufficiency (chronic) (peripheral); S91.312A Laceration without foreign body, left foot, initial encounter; X58.XXXA Exposure to other specified factors, initial encounter; Y93.9 Activity, unspecified; Y92.009 Unspecified place in unspecified non-institutional (private) residence as the place of occurrence of the external cause; Z91.81 History of falling; I89.0 Lymphedema, not elsewhere classified; E66.01 Morbid (severe) obesity due to excess calories; Z85.79 Personal history of other malignant neoplasms of lymphoid, hematopoietic and related tissues
CPT/HCPCS: 36415; 36600; 71045-TC; 73630-TC; 80048-TC; 80053-TC; 80061-TC; 80076-TC; 82272-TC; 82607-TC; 82803-TC; 82962-TC; 83540-TC; 83605-TC; 83735-TC; 83921; 84100-TC; 84425; 84443-TC; 84484-TC; 85025-TC; 85730-TC; 86850-TC; 87040-TC; 87081-TC; 97116-TC; 97530-TC; A4223; A6253; G0378; J3420